=== PATIENT | female | born 1940 | race Caucasian/White ===

== ENCOUNTER 2017-09-06 16:02 | Inpatient (IN) ==
--- NOTE | 2017-09-06 16:27 | ED ---
HPI General Chief Complaint: Stroke Alert Stated Complaint: Stroke Alert/evac Time Seen by Provider: 09/06/17 16:09 History of Present Illness HPI Narrative: Patient brought in by [facility] secondary to strokelike symptoms. Currently the family found her around 930 this morning with facial droop. Denies any chest pain, fever, chills, nausea, vomiting, abdominal pain, but reports chronic back pain for which she is taking Circle. She also has a history of hypertension and type 2 diabetes mellitus. She is reporting shortness of breath at rest and on exertion. She also denies headache, numbness , tingling, vision change. Patient did not take her blood pressure medicine today, and she does not know what she takes. There has been some question as to whether or not the patient had some strokelike symptoms yesterday before she went to bed. Regardless, as patient's last known normal is more than 6 hours ago, the stroke alert has been canceled. Patient has h/o DM, lung dz 2/2 smoking (COPD?asthma?), hyperCHL- This is based on preop note in [facility]. Patient is supposed to be on ASA but she's not taking it. States she is on norco for her chronic back pain. Related Data Home Medications Medication Instructions Recorded Confirmed Unable to Obtain Home Meds 09/06/17 09/06/17 Allergies Allergy/AdvReac Type Severity Reaction Status Date / Time No Known Allergies Allergy Unverified 09/06/17 16:47 Review of Systems ROS Unobtainable All other systems reviewed negative except as stated in [facility] Social History Social History Second Hand Smoke Exposure: No Smoking Status: Never smoker How Often Do You Have a Drink Containing Alcohol: Never Immunization History Tetanus Immunization: Unsure Hx Influenza Vaccine This Season: Yes Exam Narrative Exam Narrative: GENERAL: Awake and alert SKIN: Focused skin assessment warm/dry. HEAD: Atraumatic. Normocephalic. EYES: Pupils equal and round. No scleral icterus. No injection or drainage. ENT: No nasal bleeding or discharge. Mucous membranes pink and moist. R facial droop. NECK: Trachea midline. No JVD. CARDIOVASCULAR: Regular rate and rhythm. No murmur appreciated. RESPIRATORY: No accessory muscle use. Clear to auscultation. Breath sounds equal bilaterally. GASTROINTESTINAL: Abdomen soft, non-tender, nondistended. Hepatic and splenic margins not palpable. MUSCULOSKELETAL: No obvious deformities. No clubbing. No cyanosis. No edema. 2 /5 strength LUE, remaining extremities 5/5. NEUROLOGICAL: Awake and alert. No obvious cranial nerve deficits. Motor grossly within normal limits. Normal speech. Stroke scale 8. PSYCHIATRIC: Appropriate mood and affect; insight and judgment normal. Course Initial Documented Vital Signs Temperature 97.9 F 09/06/17 16:12 Pulse Rate 100 H 09/06/17 16:12 Respiratory Rate 18 09/06/17 16:12 Blood Pressure 218/94 H 09/06/17 16:12 Pulse Oximetry 93 L 09/06/17 16:12 Last Documented Vital Signs Temperature 97.9 F 09/06/17 16:12 Pulse Rate 94 H 09/06/17 17:06 Respiratory Rate 18 09/06/17 17:06 Blood Pressure 188/84 H 09/06/17 17:06 Pulse Oximetry 95 09/06/17 17:06 NIH Stroke Scale NIH Stroke Scale Level of Consciousness: 0-Alert Orientation Questions: 0-Answers both correct Responds to Commands: 0-Both tasks correct Gaze Eye Movement: 0-Horizontal movement WNL Visual Bales: 2-Complete hemianopia Facial Movement: 1-Minor facial palsy Motor Functions Arm LEFT: 2-Falls before 10 seconds Motor Functions Arm RIGHT: 0-No drift Motor Functions Leg LEFT: 0-No drift Motor Functions Leg RIGHT: 0-No drift Limb Ataxia: 1-Ataxia in one limb Sensory Loss: 1-Mild sensory loss Best Language: 0-Normal Articulation: 0-Normal Extinction or Inattention Sensory: 1-Loss 1 sensory modality Total: 8 Medical Decision Making MDM Narrative Medical decision making narrative: Patient presents to the emergency department as a possible stroke alert. Geovany was counseled this patient's symptoms began more than 6 hours prior to ER presentation. Her NIH stroke scale is 8 and she does have left upper extremity weakness and right-sided facial droop. Patient placed on hall monitor, continuous pulse ox, and IV access obtained. Head CT/chest x-ray/labs have been ordered. 1630: Rate 99, sinus rhythm, QTC 441, left axis deviation, left bundle branch block (no old to compare but patient denies chest pain) Labs: Elevated white blood cell count, CK, CKMB, fibrinogen, anion gap; ua+ nitrates, LE, bacteria, ketones CXR: No acute process. FINDINGS: A single AP view of the chest demonstrates the lungs to be symmetrically aerated without evidence of mass, infiltrate or effusion. The cardiomediastinal contours are unremarkable. Osseous structures are intact. Head CT: CONCLUSION:1. No acute findings. Remote lacunar infarct on the right involving basal ganglia and white matter. 1701: BP 188/94. 5mg IV labetalol ordered. 182: 5mg IV labetalol 185/86 1850: Spoke to Dr. Puga. Needs MRI brain, MRA, carotid study, ECHO, ASA or plavix. If patient not compliant wit ASA, give 325mg po ASA. If she is compliant with ASA, give plavix 75mg. Admit. 2/ CVA, ok to be slightly HTNive. 2007: Patient states difficult getting comfortable secondary to back pain. She denies chest pain. Is being admitted. UA + UTI-> 1gram IV rocephin. Also given 250cc IV NS bolus, then 70cc/hr. Differential Diagnosis Differential Diagnosis: ICH, TIA, CVA, hypertensive emergency Lab Data Result diagrams: 09/06/17 16:20 09/06/17 16:20 Lab Results 09/06/17 09/06/17 09/06/17 Range/Units 16:20 16:20 16:20 WBC 11.9 H (4.0-11.0) th/mm3 RBC 4.62 (4.00-5.30) mil/mm3 Hgb 15.4 H (11.6-15.3) gm/dL Hct 44.6 (35.0-46.0) % MCV 96.6 (80.0-100.0) fL MCH 33.4 (27.0-34.0) pg MCHC 34.6 (32.0-36.0) % RDW 13.4 (11.6-17.2) % Plt Count 196 (150-450) th/mm3 MPV 9.3 (7.0-11.0) fL Neut % (Auto) 79.8 H (16.0-70.0) % Lymph % (Auto) 11.4 (9.0-44.0) % [place] % (Auto) 8.2 H (0.0-8.0) % Eos % (Auto) 0.4 (0.0-4.0) % Baso % (Auto) 0.2 (0.0-2.0) % Neut # (Auto) 9.5 H (1.8-7.7) th/mm3 Lymph # (Auto) 1.4 (1.0-4.8) th/mm3 [place] # (Auto) 1.0 H (0.0-0.9) th/mm3 Eos # (Auto) 0.0 (0.0-0.4) th/mm3 Baso # (Auto) 0.0 (0.0-0.2) th/mm3 WBC Differential . Differential Comment Auto diff final PT 10.1 (9.8-11.6) sec INR 1.0 Ratio APTT 25.0 (24.3-30.1) sec Fibrinogen 640 H (227-377) mg/dL Sodium (136-145) meq/L Potassium (3.5-5.1) meq/L Chloride (98-107) meq/L Carbon Dioxide (21.0-32.0) meq/L Anion Gap (5-15) meq/L BUN (7-18) mg/dL Creatinine (0.50-1.00) mg/dL Estimated GFR (>89) mL/min Random Glucose (74-106) mg/dL Calcium (8.5-10.1) mg/dL Magnesium (1.5-2.5) mg/dL Total Bilirubin (0.2-1.0) mg/dL AST (15-37) U/L ALT (10-53) U/L Alkaline Phosphatase (45-117) U/L Total Creatine Kinase 204 H (26-192) U/L CK-MB (CK-2) 3.9 H (0.5-3.6) ng/mL CK-MB (CK-2) % 1.9 (0.0-4.0) % Troponin I Less than 0.02 L (0.02-0.05) ng/mL B-Natriuretic Peptide (0-100) pg/mL Total Protein (6.4-8.2) g/dL Albumin (3.4-5.0) g/dL Urine Color (Yellw/Straw) Urine Clarity (Clear) Urine pH (5.0-8.5) Ur Specific [place] (1.002-1.035) Urine Protein (Neg-Trace) mg/dL Urine Glucose (UA) (Negative) mg/dL Urine Ketones (Negative) mg/dL Urine Occult Blood (Negative) Urine Nitrate (Negative) Urine Bilirubin (Negative) Urine Urobilinogen (Less than 2) mg/dL Ur Leukocyte Esterase (Negative) Urine RBC (0-3) /hpf Urine WBC (0-5) /hpf Ur Squamous Epith Cells (0-5) /hpf Urine Bacteria (None) /hpf Urine Mucus (Occasional) /lpf Micro UA Comment Urine Culture Comments Blood Type Blood Type Recheck Antibody Screen 09/06/17 09/06/17 09/06/17 Range/Units 16:20 16:20 16:20 WBC (4.0-11.0) th/mm3 RBC (4.00-5.30) mil/mm3 Hgb (11.6-15.3) gm/dL Hct (35.0-46.0) % MCV (80.0-100.0) fL MCH (27.0-34.0) pg MCHC (32.0-36.0) % RDW (11.6-17.2) % Plt Count (150-450) th/mm3 MPV (7.0-11.0) fL Neut % (Auto) (16.0-70.0) % Lymph % (Auto) (9.0-44.0) % [place] % (Auto) (0.0-8.0) % Eos % (Auto) (0.0-4.0) % Baso % (Auto) (0.0-2.0) % Neut # (Auto) (1.8-7.7) th/mm3 Lymph # (Auto) (1.0-4.8) th/mm3 [place] # (Auto) (0.0-0.9) th/mm3 Eos # (Auto) (0.0-0.4) th/mm3 Baso # (Auto) (0.0-0.2) th/mm3 WBC Differential Differential Comment PT (9.8-11.6) sec INR Ratio APTT (24.3-30.1) sec Fibrinogen (227-377) mg/dL Sodium (136-145) meq/L Potassium (3.5-5.1) meq/L Chloride (98-107) meq/L Carbon Dioxide (21.0-32.0) meq/L Anion Gap (5-15) meq/L BUN (7-18) mg/dL Creatinine (0.50-1.00) mg/dL Estimated GFR (>89) mL/min Random Glucose (74-106) mg/dL Calcium (8.5-10.1) mg/dL Magnesium 1.8 (1.5-2.5) mg/dL Total Bilirubin (0.2-1.0) mg/dL AST (15-37) U/L ALT (10-53) U/L Alkaline Phosphatase (45-117) U/L Total Creatine Kinase 211 H (26-192) U/L CK-MB (CK-2) (0.5-3.6) ng/mL CK-MB (CK-2) % (0.0-4.0) % Troponin I (0.02-0.05) ng/mL B-Natriuretic Peptide 70 (0-100) pg/mL Total Protein (6.4-8.2) g/dL Albumin (3.4-5.0) g/dL Urine Color (Yellw/Straw) Urine Clarity (Clear) Urine pH (5.0-8.5) Ur Specific [place] (1.002-1.035) Urine Protein (Neg-Trace) mg/dL Urine Glucose (UA) (Negative) mg/dL Urine Ketones (Negative) mg/dL Urine Occult Blood (Negative) Urine Nitrate (Negative) Urine Bilirubin (Negative) Urine Urobilinogen (Less than 2) mg/dL Ur Leukocyte Esterase (Negative) Urine RBC (0-3) /hpf Urine WBC (0-5) /hpf Ur Squamous Epith Cells (0-5) /hpf Urine Bacteria (None) /hpf Urine Mucus (Occasional) /lpf Micro UA Comment Urine Culture Comments Blood Type Blood Type Recheck Antibody Screen 09/06/17 09/06/17 09/06/17 Range/Units 16:20 16:22 19:25 WBC (4.0-11.0) th/mm3 RBC (4.00-5.30) mil/mm3 Hgb (11.6-15.3) gm/dL Hct (35.0-46.0) % MCV (80.0-100.0) fL MCH (27.0-34.0) pg MCHC (32.0-36.0) % RDW (11.6-17.2) % Plt Count (150-450) th/mm3 MPV (7.0-11.0) fL Neut % (Auto) (16.0-70.0) % Lymph % (Auto) (9.0-44.0) % [place] % (Auto) (0.0-8.0) % Eos % (Auto) (0.0-4.0) % Baso % (Auto) (0.0-2.0) % Neut # (Auto) (1.8-7.7) th/mm3 Lymph # (Auto) (1.0-4.8) th/mm3 [place] # (Auto) (0.0-0.9) th/mm3 Eos # (Auto) (0.0-0.4) th/mm3 Baso # (Auto) (0.0-0.2) th/mm3 WBC Differential Differential Comment PT (9.8-11.6) sec INR Ratio APTT (24.3-30.1) sec Fibrinogen (227-377) mg/dL Sodium 134 L (136-145) meq/L Potassium 3.6 (3.5-5.1) meq/L Chloride 94 L (98-107) meq/L Carbon Dioxide 20.1 L (21.0-32.0) meq/L Anion Gap 20 H (5-15) meq/L BUN 13 (7-18) mg/dL Creatinine 0.75 (0.50-1.00) mg/dL Estimated GFR 75 L (>89) mL/min Random Glucose 227 H (74-106) mg/dL Calcium 9.3 (8.5-10.1) mg/dL Magnesium (1.5-2.5) mg/dL Total Bilirubin 0.9 (0.2-1.0) mg/dL AST 30 (15-37) U/L ALT 21 (10-53) U/L Alkaline Phosphatase 114 (45-117) U/L Total Creatine Kinase (26-192) U/L CK-MB (CK-2) (0.5-3.6) ng/mL CK-MB (CK-2) % (0.0-4.0) % Troponin I (0.02-0.05) ng/mL B-Natriuretic Peptide (0-100) pg/mL Total Protein 7.5 (6.4-8.2) g/dL Albumin 3.3 L (3.4-5.0) g/dL Urine Color [place] (Yellw/Straw) Urine Clarity Hazy H (Clear) Urine pH 6.0 (5.0-8.5) Ur Specific [place] 1.019 (1.002-1.035) Urine Protein 30 H (Neg-Trace) mg/dL Urine Glucose (UA) 50 (Negative) mg/dL Urine Ketones Trace H (Negative) mg/dL Urine Occult Blood Negative (Negative) Urine Nitrate Positive H (Negative) Urine Bilirubin Negative (Negative) Urine Urobilinogen 4 or greater (Less than 2) mg/dL Ur Leukocyte Esterase Small H (Negative) Urine RBC 2 (0-3) /hpf Urine WBC (0-5) /hpf Ur Squamous Epith Cells 3 (0-5) /hpf Urine Bacteria Few H (None) /hpf Urine Mucus Few H (Occasional) /lpf Micro UA Comment Culture indicated Urine Culture Comments Culture indicated Blood Type A Positive Blood Type Recheck Required Antibody Screen Negative Imaging Data Radiologist's impression: ITS Impressions Chest X-Ray 09/06/17 16:17 CONCLUSION: No active disease. Head CT 09/06/17 16:22 CONCLUSION: 1. No acute findings. Remote lacunar infarct on the right involving basal ganglia and white matter. Discharge Plan Discharge Disposition Patient Disposition: 30 Still Patient Discharge Condition Condition: Stable Discharge Details Discharge Problem: CVA (cerebral vascular accident), UTI (urinary tract infection) Physicians Team ED Provider: Alejandra Anderson Primary Care Provider: UNKNOWN, Attending Provider: Duncan Pardo Status ED Status: Admitted Patient
--- NOTE | 2017-09-06 16:37 | XR ---
EXAM DATE: 09/06/2017 4:33 PM EDT AGE/SEX: 77 years / Female INDICATIONS: Stroke alert. CLINICAL DATA: This is the patient's initial encounter. Patient reports that signs and symptoms have been present for 1 day and indicates a pain score of 0/10. MEDICAL/SURGICAL HISTORY: None. Umbilical hernia repair. COMPARISON: No prior exams available for comparison. FINDINGS: A single AP view of the chest demonstrates the lungs to be symmetrically aerated without evidence of mass, infiltrate or effusion. The cardiomediastinal contours are unremarkable. Osseous structures a re intact. CONCLUSION: No active disease. Electronically signed by: Joaquin Sims MD 09/06/2017 4:36 PM EDT
[2017-09-06 16:53] LABS: Baso % (Auto) 0.2 % (0.0-2.0); Eos % (Auto) 0.4 % (0.0-4.0); Hematocrit 44.6 % (35.0-46.0); Hemoglobin 15.4 gm/dL (11.6-15.3); Lymph # (Auto) 1.4 th/mm3 (1.0-4.8); Lymph % (Auto) 11.4 % (9.0-44.0); Mean Corpuscular HGB Conc 34.6 % (32.0-36.0); Mean Corpuscular Hemoglobin 33.4 pg (27.0-34.0); Mean Corpuscular Volume 96.6 fL (80.0-100.0); Mean Platelet Volume 9.3 fL (7.0-11.0); Mono % (Auto) 8.2 % (0.0-8.0); Neut # (Auto) 9.5 th/mm3 (1.8-7.7); Neut % (Auto) 79.8 % (16.0-70.0); Platelet Count 196 th/mm3 (150-450); Red Blood Count 4.62 mil/mm3 (4.00-5.30); Red Cell Distribution Width 13.4 % (11.6-17.2); White Blood Count 11.9 th/mm3 (4.0-11.0)
[2017-09-06] MEDS ORDERED: Labetalol HCl Inj 100 MG/20 ML Vial IV.PUSH ONE ×2 (17:07→18:28)
[2017-09-06 17:09] LABS: Prothrombin Time 10.1 sec (9.8-11.6)
[2017-09-06 17:27] LABS: Creatine Kinase 204 U/L (26-192)
[2017-09-06 17:40] LABS: CKMB Percent 1.9 % (0.0-4.0); Creatine Kinase MB 3.9 ng/mL (0.5-3.6)
[2017-09-06 19:08] LABS: Alanine Aminotransferase 21 U/L (10-53); Albumin 3.3 g/dL (3.4-5.0); Anion Gap 20 meq/L (5-15); Aspartate Aminotransferase 30 U/L (15-37); Blood Urea Nitrogen 13 mg/dL (7-18); Calcium 9.3 mg/dL (8.5-10.1); Carbon Dioxide 20.1 meq/L (21.0-32.0); Chloride 94 meq/L (98-107); Glomerular Filtration Rate 75 mL/min (>89); Glucose,Random 227 mg/dL (74-106); Sodium 134 meq/L (136-145)
[2017-09-06 19:09] LABS: Potassium 3.6 meq/L (3.5-5.1)
[2017-09-06 19:11] LABS: Alkaline Phosphatase 114 U/L (45-117); Total Protein 7.5 g/dL (6.4-8.2)
[2017-09-06] MEDS ORDERED: Aspirin 325 MG Tablet PO ONE (20:04)
[2017-09-06] MEDS ORDERED: Dextrose 50% in Water 50 ML Vial IV.PUSH PRN (20:05)
[2017-09-06 20:08] LABS: Bacteria,Urine Few /hpf; Bilirubin,Urine Negative (Negative); Clarity,Urine Hazy (Clear); Color,Urine Amber (Yellw/Straw); Glucose,Urine (UA) 50 mg/dL (Negative); Leukocyte Esterase,Urine Small (Negative); Mucus,Urine Few /lpf (Occasional); Nitrite,Urine Positive (Negative); Specific Gravity,Urine 1.019 (1.002-1.035); Squamous Epithelial Cell,Urine 3 /hpf (0-5); Urobilinogen,Urine 4 or Greater mg/dL (Less than 2)
[2017-09-06] MEDS ORDERED: Sodium Chlor 0.9% Inj 250 ML IV.SIG ONE (20:13)
[2017-09-06] MEDS: Heparin - SQ 10,000 UNITS/ML Vial SQ SCH (23:25)
--- NOTE | 2017-09-07 04:46 | P.HPIM ---
History of Present Illness Primary Care Physician: UNKNOWN Chief Complaint: Left-sided weakness History of Present Illness: 77-year-old female with history of hypertension, COPD, diabetes mellitus who is brought in by family, having been found around 9:30 AM on 09/06 with left-sided weakness and facial droop. Patient says that this has been gradually worsening since 09/03. She denies any other symptoms. Denies any chest pain, shortness of breath, nausea, vomiting, fevers, chills, dysuria. - Inpatient Certification If this patient has been admitted as an Inpatient: I certify that the inpatient services were ordered in accordance with Medicare regulations governing the order. This includes certification that hospital inpatient services are reasonable and necessary and in the case of services not specified as inpatient-only under 42 CFR 419.22(n), that they are appropriately provided as inpatient services in accordance to with the 2-midnight benchmark under 43 CFR 412.3(e) Estimated Total Length of Stay (Days): 2 Plans for Post Hospital Care: SNF Review of Systems All other systems reviewed negative except as stated [facility] - History History Provided By: Patient - Medical History Medical History: Medical History (Last Updated 09/07/17 @ 04:42 by Duncan Pardo MD) History of hysterectomy Hypertension - Family History Family History: Family History (Last Updated 09/07/17 @ 04:42 by Duncan Pardo MD) Father Cancer Mother Diabetes - Tobacco History Second Hand Smoke Exposure: No Tobacco Use In Past 30 Days: No Smoking Status: Never smoker - Alcohol History How Often Do You Have a Drink Containing Alcohol: Never - Immunization History Tetanus Immunization: Unsure Hx Influenza Vaccine This Season: Yes Medications and Allergies Active Medications: Active Medications Albuterol (Duoneb Neb (Prn)) 1 ampul NEB Q4HR NEB PRN PRN Reason: SHORTNESS OF BREATH/WHEEZING Aspirin (Aspirin) 325 mg PO DAILY [facility] Dextrose (D50w Vial) 50 ml IV.PUSH UNSCH PRN PRN Reason: PER HYPOGLYCEMIA PROTOCOL Enalaprilat (Vasotec Inj) 1.25 mg IV.PUSH Q4H PRN PRN Reason: For SBP > 220 or DBP > 120 Glucagon (Glucagon Inj) 1 mg OTHER PRN PRN PRN Reason: for Hypoglycemia Protocol Heparin Sodium (Porcine) (Heparin Inj) 5,000 units SQ Q12H [facility] Last Admin: 09/06/17 23:25 Dose: 5,000 units Ceftriaxone Sodium 1,000 mg/ (Sodium Chloride) 100 mls @ 200 mls/hr IV.SIG Q24H EZIO Insulin Aspart (Novolog Insulin Suppl Scale Inj) 0 unit SQ ACHS EZIO; Protocol Sodium Chloride (Ns Flush) 2 ml IV.FLUSH PRN PRN PRN Reason: FLUSH AFTER USING IV ACCESS Sodium Chloride (Ns Flush) 2 ml IV.FLUSH BID EZIO Last Admin: 09/06/17 23:26 Dose: 2 ml Allergies Allergy/AdvReac Type Severity Reaction Status Date / Time No Known Allergies Allergy Unverified 09/06/17 16:47 Home Medications Medication Instructions Recorded Confirmed Type Unable to Obtain Home Meds 09/06/17 09/06/17 History Exam Vital signs: Vital Signs 09/06/17 16:12 09/06/17 16:17 09/06/17 17:06 Temperature 97.9 F Pulse Rate 100 H 94 H 94 H Respiratory Rate 18 18 Blood Pressure 218/94 H 188/84 H Pulse Oximetry 93 L 95 09/06/17 21:01 09/06/17 21:11 09/06/17 21:39 Temperature 97.8 F Pulse Rate 80 Respiratory Rate 16 Blood Pressure 162/76 H Pulse Oximetry 96 96 09/06/17 22:28 09/07/17 00:00 09/07/17 00:23 Temperature 97.5 F L 98.2 F Pulse Rate 86 80 Respiratory Rate 16 18 16 Blood Pressure 169/72 H 158/71 H Pulse Oximetry 95 94 L 09/07/17 04:00 Temperature 98.0 F Pulse Rate 81 Respiratory Rate 18 Blood Pressure 178/72 H Pulse Oximetry 95 Intake & Output 09/06/17 09/06/17 09/07/17 06:59 18:59 06:59 Weight 6 kg Other: # Urine Diapers 1 Narrative: GENERAL: Patient lying in bed. Appears comfortable. Patient is oriented 4, however does not know her med list. SKIN: Warm and dry. HEAD: Atraumatic. Normocephalic. EYES: Pupils equal and round. No scleral icterus. No injection or drainage. ENT: No nasal bleeding or discharge. Mucous membranes pink and moist. NECK: Trachea midline. No JVD. CARDIOVASCULAR: Regular rate and rhythm. RESPIRATORY: No accessory muscle use. Clear to auscultation. Breath sounds equal bilaterally. GASTROINTESTINAL: Abdomen soft, non-tender, nondistended. Hepatic and splenic margins not palpable. MUSCULOSKELETAL: Extremities without clubbing, cyanosis, or edema. No obvious deformities. NEUROLOGICAL: Awake and alert. Patient with marketed left upper and lower extremity weakness. 2 out of 5 strength on left upper and left lower extremity. Left-sided facial droop. Pupils equal round and reactive to light and accommodation bilaterally. PSYCHIATRIC: Appropriate mood and affect; insight and judgment normal. Results - Labs CBC & Chem 7: 09/06/17 16:20 09/06/17 16:20 Labs: Short CBC 09/06/17 Range/Units 16:20 WBC 11.9 H (4.0-11.0) th/mm3 Hgb 15.4 H (11.6-15.3) gm/dL Hct 44.6 (35.0-46.0) % Plt Count 196 (150-450) th/mm3 BMP 09/06/17 16:20 Sodium 134 L Potassium 3.6 Chloride 94 L Carbon Dioxide 20.1 L BUN 13 Creatinine 0.75 Calcium 9.3 Cardiac Enzymes 09/06/17 09/06/17 Range/Units 16:20 16:20 Total Creatine Kinase 204 H 211 H (26-192) U/L CK-MB (CK-2) 3.9 H (0.5-3.6) ng/mL Troponin I Less than 0.02 L (0.02-0.05) ng/mL Liver Function 09/06/17 Range/Units 16:20 Total Bilirubin 0.9 (0.2-1.0) mg/dL AST 30 (15-37) U/L ALT 21 (10-53) U/L Alkaline Phosphatase 114 (45-117) U/L Albumin 3.3 L (3.4-5.0) g/dL Urine 09/06/17 Range/Units 19:25 Urine Color [place] (Yellw/Straw) Urine Clarity Hazy H (Clear) Urine pH 6.0 (5.0-8.5) Ur Specific [place] 1.019 (1.002-1.035) Urine Protein 30 H (Neg-Trace) mg/dL Urine Glucose (UA) 50 (Negative) mg/dL - Imaging Impressions Chest X-Ray 09/06/17 16:17 CONCLUSION: No active disease. Head CT 09/06/17 16:22 CONCLUSION: 1. No acute findings. Remote lacunar infarct on the right involving basal ganglia and white matter. Caprini VTE Risk Assessment Caprini VTE Risk Assessment: Moderate/High Risk (score >= 2) Caprini Risk Assessment Model: Point Value = 1 Point Value = 2 Point Value = 3 Point Value = 5 Age 41-60 Minor surgery BMI > 25 kg/m2 Swollen legs Varicose veins or History of unexplained or recurrent spontaneous Oral contraceptives or hormone replacement Sepsis (< 1 month) Serious lung disease, including pneumonia (< 1 month) Abnormal pulmonary function Acute myocardial infarction Congestive heart failure (< 1 month) History of inflammatory bowel disease Medical patient at bed rest Age 61-74 Arthroscopic surgery Major open surgery (> 45 min) Laparoscopic surgery (> 45 min) Malignancy Confined to bed (> 72 hours) Immobilizing plaster cast Central venous access Age >= 75 History of VTE Family history of VTE Factor V Leiden Prothrombin [id number] Lupus anticoagulant Anticardiolipin antibodies Elevated serum homocysteine Heparin-induced thrombocytopenia Other congenital or acquired thrombophilia Stroke (< 1 month) Elective arthroplasty Hip, pelvis, or leg fracture Acute spinal cord injury (< 1 month) Prophylaxis Regimen: Total Risk Factor Score Risk Level Prophylaxis Regimen 0-1 Low Early ambulation 2 Moderate Order ONE of the following: *Sequential Compression Device (SCD) *Heparin 5000 units SQ BID 3-4 Higher Order ONE of the following medications: *Heparin 5000 units SQ TID *Enoxaparin/Lovenox 40 mg SQ daily (WT < 150 kg, CrCl > 30 mL/min) *Enoxaparin/Lovenox 30 mg SQ daily (WT < 150 kg, CrCl > 10-29 mL/min) *Enoxaparin/Lovenox 30 mg SQ BID (WT < 150 kg, CrCl > 30 mL/min) AND/OR *Sequential Compression Device (SCD) 5 or more Highest Order ONE of the following medications: *Heparin 5000 units SQ TID (Preferred with Epidurals) *Enoxaparin/Lovenox 40 mg SQ daily (WT < 150 kg, CrCl > 30 mL/min) *Enoxaparin/Lovenox 30 mg SQ daily (WT < 150 kg, CrCl > 10-29 mL/min) *Enoxaparin/Lovenox 30 mg SQ BID (WT < 150 kg, CrCl > 30 mL/min) AND *Sequential Compression Device (SCD) Assessment and Plan - Plan //Suspected acute ischemic stroke with left-sided weakness. = CT on admission with no acute findings, old lacunar infarct. Marketed left- sided weakness however. MRA, MRI pending. Neurology consult. Permissive hypertension. Neurochecks. Continue to monitor. Check A1c and lipid profile. = Start daily aspirin = Follow-up neurology recommendations. //History of COPD. Stable. Duo nebs as needed. //Diabetes mellitus. Chronic. Will check A1c. Patient is n.p.o. for now. Insulin sliding scale //UTI. Urinalysis with innumerable white blood cells. Start on ceftriaxone. //Chronic pain. On [place]. Patient denies any recent changes. Continue home meds. //Anion gap acidosis. Uncertain etiology. Repeat labs. Trace ketones on urine. CK mildly elevated. Lactic acid is pending. //History of hypertension. Unknown home meds. Permissive hypertension Discussed Condition With: Patient, nurse, ED physician.
[2017-09-07] MEDS: Insulin NovoLOG Aspart Correctional Sugar Inj SQ SCH ×5 (05:54→22:27)
[2017-09-07 06:27] LABS: Amphetamine Screen,Urine Neg (Neg); Barbiturate Screen,Urine Neg (Neg); Cannabinoid Screen,Urine Neg (Neg); Cocaine Screen,Urine Neg (Neg); Opiate Screen,Urine Pos (Neg)
[2017-09-07] MEDS: Aspirin 325 MG Tablet PO SCH (08:49)
[2017-09-07] MEDS: Heparin - SQ 10,000 UNITS/ML Vial SQ SCH ×2 (08:50→22:25)
[2017-09-07] MEDS ORDERED: Aspirin 325 MG Tablet PO SCH (09:00)
--- NOTE | 2017-09-07 10:17 | MB ---
cc: Olaf Dunn MD DATE: 09/07/2017 HISTORY OF PRESENT ILLNESS: A 77-year-old, right-handed woman with hypertension and non-insulin dependent diabetes. Yesterday she is not sure what time she became weak on the left side. It was over 6 hours when she came in. The family found her at 9:30 yesterday morning with a facial droop. She has been on some chronic [place] for back pain. She was having some shortness of breath on exertion. She has some history COPD, evidently some hypercholesterolemia. REVIEW OF SYSTEMS: She denied any hypercholesterolemia, CABG, stent, angioplasty, AFib, Coumadin, heart problems, renal, hepatic or pulmonary disease, thyroid disease, lupus, ulcer, cancer, seizure or stroke. SOCIAL HISTORY: Nonsmoker, drinker, lives with her son. FAMILY HISTORY: Positive for cancer in her father. Negative for seizure or stroke. MEDICATIONS AT HOME: Unable to obtain. She was not taking an aspirin a day or any blood thinner, she tells me. PHYSICAL EXAMINATION: VITAL SIGNS: 171/70, 18, afebrile. NECK: No carotid bruits. HEART: Regular rhythm with a 1/6 systolic ejection murmur. NEUROLOGIC: Pupils are equal. Visual huerta are full. Extraocular movements intact. No nystagmus. There is a left facial droop with normal sensation. Tongue was midline and moves well. She is slightly dysarthric, but not aphasic. Follows commands well. She has normal strength in right upper and lower extremity. Left lower extremity is about a 4+/5. Left upper extremity is about a 4-/5 in triceps, but she cannot move any of her fingers. Pinprick was intact throughout. DTRs slightly hyperreflexive on the left compared to the right, but generally trace throughout. Toes are downgoing bilaterally. No ankle clonus. She is awake and alert. LABORATORY DATA: White count is 11.9, otherwise CBC was normal. Urine drug screen positive for opiates. UA positive nitrites, small amount of leukocyte esterase, many white cells. Basic metabolic profile was normal. Glucose 206. CPK was normal. Troponin was negative. Albumin is 3.3. LFTs are normal. Coags were normal. IMAGING STUDIES: CAT scan of brain was read as negative. She has an old right lacunar infarct, rather large. Chest x-ray negative. IMPRESSION: Right-sided stroke. Pure motor hemiparesis, possibly affecting that subcortical region on the right that had an old stroke in the past. A pontine infarct could also be considered. RECOMMENDATIONS: Would check an MRI of the brain, MRA [place] and neck, some additional blood work. Right now she is on 325 of aspirin. Keep head of bed flat. IV hydration. I will be following her with you in the hospital. It looks like she has significant UTI and she was given one dose of ceftriaxone. MD CLAUDIA Villanueva/CHUCK , 09:38 AM , 10:17 AM
[2017-09-07 10:19] LABS: Anion Gap 11 meq/L (5-15); Blood Urea Nitrogen 12 mg/dL (7-18); Calcium 8.5 mg/dL (8.5-10.1); Carbon Dioxide 27.7 meq/L (21.0-32.0); Chloride 100 meq/L (98-107); Cholesterol 168 mg/dL (120-200); Glomerular Filtration Rate Greater Than 89 mL/min (>89); Potassium 3.2 meq/L (3.5-5.1); Sodium 139 meq/L (136-145); Triglycerides 163 mg/dL (42-150)
[2017-09-07 10:20] LABS: Glucose,Random 139 mg/dL (74-106)
[2017-09-07 10:31] LABS: LDL Cholesterol,Calculated 95 mg/dL (0-99)
--- NOTE | 2017-09-07 11:43 | US ---
EXAM DATE: 09/07/2017 11:35 AM EDT AGE/SEX: 77 years / Female INDICATIONS: Transient ischemic attack. CLINICAL DATA: This is the patient's initial encounter. Patient reports that signs and symptoms have been present for 1 day and indicates a pain score of 0/10. MEDICAL/SURGICAL HISTORY: Hypertension. Hysterectomy. COMPARISON: No prior exams available for comparison. VELOCITY PARAMETERS: ICA/CCA Ratio: Right 1.9 , Left 2.7 ICA: Right 154.8 cm/sec, Left 213.5 cm/sec CCA: Right 79.8 cm/sec, Left 79.8 cm/sec ECA: Right 107.5 cm/sec, Left 126.9 cm/sec Vertebral: Right 49.0 cm/sec antegrade, Left 38.1 cm/sec antegrade FINDINGS: Right Carotid: Mild to moderate arteriosclerotic plaque is visualized.The waveforms are within manuelito l limits. Left Carotid: Moderate arteriosclerotic plaque is visualized. The waveforms are within normal limits . Other: None. CONCLUSION: 1. Right Internal Carotid Artery: Findings indicate <50% stenosis. 2. Left Internal Carotid Artery: Findings indicate 50-69% stenosis. Electronically signed by: Bronson Leigh MD 09/07/2017 11:41 AM EDT
--- NOTE | 2017-09-07 14:06 | MR ---
EXAM DATE: 09/07/2017 1:55 PM EDT AGE/SEX: 77 years / Female INDICATIONS: . Left sided weakness with facial droop. CLINICAL DATA: This is the patient's subsequent encounter. Patient reports that signs and symptoms h ave been present for 2 days and indicates a pain score of 0/10. MEDICAL/SURGICAL HISTORY: Hypertension. Diabetes mellitus type II. Hysterectomy. COMPARISON: [facility] – [place], MR HEAD W & W/O CONTRAST, 09/07/2017. . TECHNIQUE: 3D [id number] MRA was performed. Source images, multiplanar STS MIP, and 3D volum e MIP reconstructions were reviewed. FINDINGS: There is excellent visualization of the major intracranial arteries out to the second-order branch ve ssels. There is no evidence for aneurysm, vessel truncation or evidence for vascular malformation. There appears to be a focal area of stenosis involving the proximal portion of a branch of the right middle cerebral artery. No occlusion is demonstrated. There is a patent right posterior communicating artery. CONCLUSION: 1. There appears to be a focal stenosis involving the proximal segment of a branch of the right midd le cerebral artery. 2. Otherwise, the rest of the MRA brain is within normal limits for patient's age. Electronically signed by: Luis Caldwell MD 09/07/2017 2:04 PM EDT
[2017-09-07] MEDS ORDERED: Gadodiamide PF Inj 287 MG/ML 20 ML Syringe (for RAD MRI) IVCONTRAST ONE (14:18)
--- NOTE | 2017-09-07 14:35 | MR ---
EXAM DATE: 09/07/2017 2:12 PM EDT AGE/SEX: 77 years / Female INDICATIONS: . Left sided weakness with facial droop. CLINICAL DATA: This is the patient's subsequent encounter. Patient reports that signs and symptoms h ave been present for 2 days and indicates a pain score of 0/10. MEDICAL/SURGICAL HISTORY: Hypertension. Diabetes mellitus type II. Hysterectomy. COMPARISON: [facility] – [place], CT HEAD W/O CONTRAST, 09/06/2017. . TECHNIQUE: Multiplanar, multisequence examination of the brain was performed without and with 20 ml O mniscan (gadodiamide) contrast as a single exam dose. FINDINGS: Cerebrum: The ventricles are normal for age. No evidence of midline shift, mass lesion, hemorrhage. There appears to be a focal acute nonhemorrhagic area of infarction involving the deep right mid par ietal area adjacent to the right lateral ventricle extending to the right basal ganglia . This is bes t seen on the diffusion-weighted images. The area of infarction measures approximate 1.9 cm.. No ext raaxial fluid collections are seen. The pituitary gland and suprasellar cistern are normal in config uration. White Matter: Mild chronic white matter changes are noted bilaterally. This is characteristic for pa marck's age. Posterior Fossa: The cerebellum and brainstem are intact. The 4th ventricle is midline. The cerebel lopontine angle is unremarkable. The cerebellar tonsils are normal in position. Diffusion Imaging: There is focal increased signal involving the deep mid right parietal lobe adjace nt to the right lateral ventricle extending to the right basal ganglia consistent with a focal area o f acute infarction. The area of infarction measures 1.9 cm. Extracranial: The visualized portions of the orbits are unremarkable. There are some chronic sinus d isease in the ethmoid sinuses bilaterally. 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 Post Contrast: No abnormal areas of parenchymal or dural enhancement. No evidence of blood-brain ba rrier breakdown. No enhancing mass occupying lesions. CONCLUSION: 1. Focal acute nonhemorrhagic area of infarction involving the deep right mid parietal lobe adjacent the right lateral ventricle extending to the right basal ganglia region. 2. Mild bilateral chronic white matter changes. 3. Chronic sinus disease. Electronically signed by: Luis Caldwell MD 09/07/2017 2:34 PM EDT
--- NOTE | 2017-09-07 14:39 | MR ---
EXAM DATE: 09/07/2017 2:24 PM EDT AGE/SEX: 77 years / Female INDICATIONS: . Left sided weakness with facial droop. CLINICAL DATA: This is the patient's subsequent encounter. Patient reports that signs and symptoms h ave been present for 2 days and indicates a pain score of 0/10. MEDICAL/SURGICAL HISTORY: Hypertension. Diabetes mellitus type II. Hysterectomy. COMPARISON: No prior exams available for comparison. TECHNIQUE: 20 ml Omniscan (gadodiamide) contrast infused MRA (single exam dose) of the extracranial circulation was performed using a neurovascular coil. Postprocessing was performed, including rotat ing sub-volume maximum intensity projections of each carotid artery, rotating full-volume maximum int ensity projections of both carotid arteries, sagittal and coronal sliding thin-slab reformations of e ach carotid artery, and left oblique sliding thin-slab reformation through the aortic arch to include the origin of the arch branch vessels. FINDINGS: Aortic Arch : There is a three-vessel origin of the great vessels from the aorta. No evidence of o stial narrowing. Right Carotid : The common carotid artery is intact. The carotid bulb has a normal configuration wi thout ulceration or narrowing. Eccentric plaque at the origin of the internal carotid artery with res ultant approximately 45% stenosis. Internal carotid artery is otherwise patent to the skull base. The external carotid artery is intact. Left Carotid : The common carotid artery is intact. Eccentric plaque extending from the bulb to the origin of the internal carotid artery. Resultant approximately 45% stenosis. Internal carotid artery is otherwise patent to the skull base. The external carotid artery is intact. Vertebrals : The vertebral arteries have a symmetric diameter. No stenotic lesions are seen. CONCLUSION: 1. Approximately 45% stenosis of the internal carotid artery origins bilaterally secondary to eccent jody plaque. 2. Patent vertebral arteries bilaterally. Percent stenosis is calculated using the diameter of the stenotic region over the diameter of the nor mal distal internal carotid artery Electronically signed by: Bronson Leigh MD 09/07/2017 2:38 PM EDT
[2017-09-07] MEDS: Sod Chloride 0.9% Inj 1,000 ML IV.SIG SCH (15:06)
[2017-09-07 16:22] LABS: Hemoglobin A1c 8.7 % (4.3-6.0)
--- NOTE | 2017-09-07 17:28 | ECHRPT ---
Indication: CVA/TIA CONCLUSIONS Normal left ventricular size. Mild concentric left ventricular hypertrophy. The left ventricular systolic function is mildly reduced with an estimated ejection fraction in the range of 45- 50%. Suspect distal septal hypokinesis. No atrial level shunt is demonstrated by color flow Doppler interrogation. The aortic root and proximal ascending aorta are not well visualized. Trace mitral valve regurgitation. Aortic valve sclerosis is present. Trace aortic valve regurgitation. There is trace tricuspid valve regurgitation. The estimated pulmonary arterial pressure is 37.2 mmHg. BP: / HR: Rhythm: Sinus MEASUREMENTS (Male / Female) Normal Values Technical Quality:Fair 2D ECHO LV Diastolic Diameter PLAX 4.2 cm 4.2 - 5.9 / 3.9 - 5.3 cm LV Systolic Diameter PLAX 3.3 cm IVS Diastolic Thickness 1.5 cm 0.6 - 1.0 / 0.6 - 0.9 cm LVPW Diastolic Thickness 1.4 cm 0.6 - 1.0 / 0.6 - 0.9 cm LV Relative Wall Thickness 0.7 RV Internal Dim ED PLAX 1.8 cm LVOT Diameter 1.4 cm Aortic Root Diameter 2.5 cm LA Systolic Diameter LX 3.4 cm 3.0 - 4.0 / 2.7 - 3.8 cm DOPPLER AV Peak Velocity 142.0 cm/s AV Peak Gradient 8.1 mmHg AV Mean Gradient 4.0 mmHg AV Velocity Time Integral 25.0 cm LVOT Peak Velocity 88.7 cm/s LVOT Peak Gradient 3.1 mmHg LVOT Velocity Time Integral 13.3 cm AV Area Cont Eq vti 0.8 cm AV Area Cont Eq pk 1.0 cm Mitral E Point Velocity 72.1 cm/s Mitral A Point Velocity 111.0 cm/s Mitral E to A Ratio 0.6 LV E' Lateral Velocity 5.3 cm/s Mitral E to LV E' Lateral Ratio 13.7 LV E' Septal Velocity 4.3 cm/s Mitral E to LV E' Septal Ratio 16.8 TR Peak Velocity 261.0 cm/s TR Peak Gradient 27.2 mmHg Right Atrial Pressure 10.0 mmHg Pulmonary Artery Systolic Pressu 37.2 mmHg Right Ventricular Systolic Press 37.2 mmHg PV Peak Velocity 94.0 cm/s PV Peak Gradient 3.5 mmHg FINDINGS LEFT VENTRICLE Normal left ventricular size. Mild concentric left ventricular hypertrophy. The left ventricular systolic function is mildly reduced with an estimated ejection fraction in the range of 45- 50%. Suspect distal septal hypokiesis RIGHT VENTRICLE Normal right ventricular size and systolic function. LEFT ATRIUM The left atrial size is normal. RIGHT ATRIUM The right atrial size is normal. ATRIAL SEPTUM No atrial level shunt is demonstrated by color flow Doppler interrogation. AORTA The aortic root and proximal ascending aorta are not well visualized. MITRAL VALVE Trace mitral valve regurgitation. AORTIC VALVE Aortic valve sclerosis is present. Trace aortic valve regurgitation. TRICUSPID VALVE There is trace tricuspid valve regurgitation. The estimated pulmonary arterial pressure is 37.2 mmHg. PULMONARY VALVE No pulmonary valve regurgitation or stenosis. VESSELS The inferior vena cava is normal in size. PERICARDIUM No pericardial effusion. Quinton Abarca MD (Electronically Signed) Final Date:07 September 2017 17:27
--- NOTE | 2017-09-07 18:02 | ECG ---
Date Performed: 09/06/2017 Time Performed: 16:12:46 PTAGE: 77 years EKG: Sinus rhythm WITH OCCASIONAL ECTOPIC PREMATURE COMPLEXES MARKED LEFT AXIS DEVIATION LEFT BUNDLE BRANCH BLOCK ABNO RMAL ECG NO PREVIOUS TRACING DOCTOR: Rola Fagan Interpretating Date/Time 09/07/2017 17:59:02
--- NOTE | 2017-09-08 02:07 | CT ---
EXAM DATE: 09/08/2017 1:51 AM EDT AGE/SEX: 77 years / Female INDICATIONS: Left side weakness. Evaluate for atherosclrosis. CLINICAL DATA: This is the patient's subsequent encounter. Patient reports that signs and symptoms h ave been present for 3 days and indicates a pain score of 0/10. MEDICAL/SURGICAL HISTORY: Hypertension. Diabetes. Hysterectomy. RADIATION DOSE: 20.97 CTDI (mGy) COMPARISON: [facility] – [place], MRA HEAD W/O CONTRAST, 09/07/2017. . TECHNIQUE: Volumetric scanning was performed using a multi-row detector CT scanner during bolus infu celso of 75 ml Omnipaque 350 (iohexol) nonionic water-soluble contrast as a single exam dose. The d tom was post processed with a variety of visualization algorithms including full volume maximum inten sity projection, multi-planar sliding thin slab reformation, curved planar reformation, and surface r endering techniques. Using automated exposure control and adjustment of the mA and/or kV according t o patient size, radiation dose was kept as low as reasonably achievable to obtain optimal diagnostic quality images. DICOM format image data is available electronically for review and comparison. FINDINGS: There is excellent visualization of the major intracranial arteries out to the second-order branch ve ssels. There is no evidence for aneurysm, vessel truncation or stenosis, and no evidence for vascula r malformation. Mild vertebrobasilar atherosclerotic plaque without narrowing. CONCLUSION: No acute intracranial artery abnormality. The questionable stenosis of a right middle cer ebral artery branch vessel seen on the comparison MRA is not reproduced consistent with transient spa sm or flow related artifact; would favor the latter. Mild vertebrobasilar atherosclerosis without bernard rowing. Electronically signed by: Hans Lagunas MD 09/08/2017 2:05 AM EDT
[2017-09-08] MEDS: Sod Chloride 0.9% Inj 1,000 ML IV.SIG SCH (06:09)
--- NOTE | 2017-09-08 07:18 | P.PNNEU ---
Subjective Subjective Comments: No acute events reported No headache No chest pain No dyspnea sr Active Medications: Active Medications Generic Name Dose Route Start Last Admin Trade Name Freq PRN Reason Stop Dose Admin Albuterol 1 ampul 09/07/17 04:38 Duoneb Neb (Prn) NEB Q4HR NEB PRN SHORTNESS OF BREATH/WHEEZING Aspirin 325 mg 09/07/17 09:00 09/07/17 08:49 Aspirin PO 325 mg DAILY EZIO Administration Dextrose 50 ml 09/06/17 20:05 D50w Vial IV.PUSH UNSCH PRN PER HYPOGLYCEMIA PROTOCOL Enalaprilat 1.25 mg 09/06/17 19:59 Vasotec Inj IV.PUSH Q4H PRN For SBP > 220 or DBP > 120 Glucagon 1 mg 09/06/17 20:05 Glucagon Inj OTHER PRN PRN for Hypoglycemia Protocol Heparin Sodium (Porcine) 5,000 units 09/06/17 20:00 09/07/17 22:25 Heparin Inj SQ 5,000 units Q12H EZIO Administration Ceftriaxone Sodium 1,000 mg/ 100 mls @ 200 mls/hr 09/08/17 00:01 09/08/17 06: 10 Sodium Chloride IV.SIG 200 mls/hr Q24H EZIO Administration Sodium Chloride 1,000 mls @ 70 mls/hr 09/07/17 14:30 09/08/17 06:09 Ns Inj IV.SIG Not Given .[id number] [facility] Insulin Aspart 0 unit 09/06/17 21:00 09/07/17 22:27 Novolog Insulin Suppl Scale Inj SQ Not Given ACHS EZIO Protocol Sodium Chloride 2 ml 09/06/17 19:59 Ns Flush IV.FLUSH PRN PRN FLUSH AFTER USING IV ACCESS Sodium Chloride 2 ml 09/06/17 21:00 09/07/17 22:26 Ns Flush IV.FLUSH 2 ml BID EZIO Administration Allergies/Adverse Reactions: Allergies Allergy/AdvReac Type Severity Reaction Status Date / Time No Known Allergies Allergy Unverified 09/06/17 16:47 Physical Exam Vital signs: Vital Signs 09/07/17 08:00 09/07/17 08:38 09/07/17 12:13 Temperature 97.8 F 99.3 F Pulse Rate 87 78 87 Respiratory Rate 18 18 Blood Pressure 171/70 H 180/67 H Pulse Oximetry 97 94 L 09/07/17 14:50 07/05/18 16:27 09/07/17 20:00 Temperature 98.1 F 98.6 F Pulse Rate 82 84 Respiratory Rate 18 17 Blood Pressure 191/97 H 175/77 H Pulse Oximetry 94 L 97 95 09/07/17 21:00 09/08/17 00:00 09/08/17 06:08 Temperature 97.9 F 97.7 F Pulse Rate 97 H 97 H 88 Respiratory Rate 17 17 Blood Pressure 176/92 H 185/81 H Pulse Oximetry 94 L 94 L Intake & Output 09/07/17 09/08/17 09/08/17 18:59 06:59 18:59 Intake Total 120 / 120 Output Total 900 / 900 800 / 800 Balance -900 / -900 -680 / -680 Weight 60.9 kg 62 kg Intake: Oral 120 / 120 Output: Urine 900 / 900 800 / 800 Other: # Bowel Movements 0 Weight On Admission 60.9 kg Narrative: Her speech is more clear there is a left facial droop she is able to lift the left arm off the bed slightly but still not moving the fingers. Left lower extremity she moves quite well off the bed. Objective Laboratory Results - last 24 hr 09/06/17 09/07/17 09/07/17 19:25 08:06 08:17 Sodium 139 Potassium 3.2 L Chloride 100 Carbon Dioxide 27.7 Anion Gap 11 BUN 12 Creatinine 0.47 L Estimated GFR Greater than 89 POC Glucose 151 H Random Glucose 139 H Hemoglobin A1c Lactic Acid Calcium 8.5 D Triglycerides 163 H Cholesterol 168 LDL Cholesterol, Calc 95 HDL Cholesterol 40.0 Cholesterol/HDL Ratio 4.20 TSH Urine Color [place] Urine Clarity Hazy H Urine pH 6.0 Ur Specific [place] 1.019 Urine Protein 30 H Urine Glucose (UA) 50 Urine Ketones Trace H Urine Occult Blood Negative Urine Nitrate Positive H Urine Bilirubin Negative Urine Urobilinogen 4 or greater Ur Leukocyte Esterase Small H Urine RBC 2 Urine WBC Ur Squamous Epith Cells 3 Urine Bacteria Few H Urine Mucus Few H Micro UA Comment Culture indicated Urine Culture Comments Culture indicated 09/07/17 09/07/17 09/07/17 08:17 08:17 12:25 Sodium Potassium Chloride Carbon Dioxide Anion Gap BUN Creatinine Estimated GFR POC Glucose 176 H Random Glucose Hemoglobin A1c 8.7 H Lactic Acid Calcium Triglycerides Cholesterol LDL Cholesterol, Calc HDL Cholesterol Cholesterol/HDL Ratio TSH 11.900 H Urine Color Urine Clarity Urine pH Ur Specific [place] Urine Protein Urine Glucose (UA) Urine Ketones Urine Occult Blood Urine Nitrate Urine Bilirubin Urine Urobilinogen Ur Leukocyte Esterase Urine RBC Urine WBC Ur Squamous Epith Cells Urine Bacteria Urine Mucus Micro UA Comment Urine Culture Comments 09/07/17 09/07/17 09/07/17 16:26 16:46 20:58 Sodium Potassium Chloride Carbon Dioxide Anion Gap BUN Creatinine Estimated GFR POC Glucose 161 H 156 H Random Glucose Hemoglobin A1c Lactic Acid 1.1 Calcium Triglycerides Cholesterol LDL Cholesterol, Calc HDL Cholesterol Cholesterol/HDL Ratio TSH Urine Color Urine Clarity Urine pH Ur Specific [place] Urine Protein Urine Glucose (UA) Urine Ketones Urine Occult Blood Urine Nitrate Urine Bilirubin Urine Urobilinogen Ur Leukocyte Esterase Urine RBC Urine WBC Ur Squamous Epith Cells Urine Bacteria Urine Mucus Micro UA Comment Urine Culture Comments Microbiology 09/06/17 19:25 Urine Culture - Preliminary Clean Catch Urine gram negative rods Review/Management - Review/Management Plan: Her MRi looks probably a deep electrical project engineer type infarct. It is on the right side The CTA does not show anything in the right distal middle cerebral artery or its branches. The echocardiogram EF 45-50% with some apical hypokinesis and I will have cardiology see her. For now I would just treat with the aspirin she will need a [facility] outpatient. Her thyroid appears to be off and that should be treated. Her LDL was less than 100. We need to follow-up her Holter monitor but on aspirin 325 a day she is okay for discharge. There was some apical hypokinesis on the echo cardiology could weigh in whether they think she needs to be anticoagulated on the basis of that.
--- NOTE | 2017-09-08 08:15 | P.CONCA ---
History of Present Illness Primary Care Provider: UNKNOWN Family Provider: UNKNOWN Chief Complaint: Left-sided weakness History of Present Illness: 77-year-old female with a past medical history of chronic pain and opiate use who presented with left-sided weakness and facial droop. The patient was found to have CVA. Echocardiogram done a CVA workup showed slightly decreased EF 45 50% with possible septal hypokinesis, and for this we are consulted. The patient's EKG shows left bundle branch block, no prior EKG available for comparison. The patient denies any chest pain. She has been having some shortness of breath since admission, none prior, chest x-ray clear. She denies any prior history of heart disease, tobacco use, or family history of heart disease. Review of Systems All other systems reviewed negative except as stated in [facility] - History History Provided By: Patient - Medical History Medical History: Medical History (Last Updated 09/08/17 @ 08:12 by LIONEL Harris) Chronic pain History of hysterectomy Hypertension - Family History Family History: Family History (Last Updated 09/07/17 @ 04:42 by Duncan Pardo MD) Father Cancer Mother Diabetes - Tobacco History Second Hand Smoke Exposure: No Tobacco Use In Past 30 Days: No Smoking Status: Never smoker - Alcohol History How Often Do You Have a Drink Containing Alcohol: Never - Immunization History Tetanus Immunization: Unsure Hx Influenza Vaccine This Season: Yes Medications and Allergies Active Medications: Active Medications Albuterol (Duoneb Neb (Prn)) 1 ampul NEB Q4HR NEB PRN PRN Reason: SHORTNESS OF BREATH/WHEEZING Aspirin (Aspirin) 325 mg PO DAILY [facility] Last Admin: 09/07/17 08:49 Dose: 325 mg Dextrose (D50w Vial) 50 ml IV.PUSH UNSCH PRN PRN Reason: PER HYPOGLYCEMIA PROTOCOL Enalaprilat (Vasotec Inj) 1.25 mg IV.PUSH Q4H PRN PRN Reason: For SBP > 220 or DBP > 120 Glucagon (Glucagon Inj) 1 mg OTHER PRN PRN PRN Reason: for Hypoglycemia Protocol Heparin Sodium (Porcine) (Heparin Inj) 5,000 units SQ Q12H [facility] Last Admin: 09/07/17 22:25 Dose: 5,000 units Ceftriaxone Sodium 1,000 mg/ (Sodium Chloride) 100 mls @ 200 mls/hr IV.SIG Q24H [facility] Last Admin: 09/08/17 06:10 Dose: 200 mls/hr Sodium Chloride (Ns Inj) 1,000 mls @ 70 mls/hr IV.SIG .[id number] [facility] Last Admin: 09/08/17 06:09 Dose: Not Given Insulin Aspart (Novolog Insulin Suppl Scale Inj) 0 unit SQ ACHS [facility]; Protocol Last Admin: 09/07/17 22:27 Dose: Not Given Sodium Chloride (Ns Flush) 2 ml IV.FLUSH PRN PRN PRN Reason: FLUSH AFTER USING IV ACCESS Sodium Chloride (Ns Flush) 2 ml IV.FLUSH BID [facility] Last Admin: 09/07/17 22:26 Dose: 2 ml Allergies Allergy/AdvReac Type Severity Reaction Status Date / Time No Known Allergies Allergy Unverified 09/06/17 16:47 Home Medications Medication Instructions Recorded Confirmed Type Unable to Obtain Home Meds 09/06/17 09/06/17 History Exam Vital signs: Vital Signs 09/07/17 08:38 09/07/17 12:13 09/07/17 14:50 Temperature 97.8 F 99.3 F Pulse Rate 78 87 Respiratory Rate 18 18 Blood Pressure 171/70 H 180/67 H Pulse Oximetry 97 94 L 94 L 09/07/17 16:27 09/07/17 20:00 09/07/17 21:00 Temperature 98.1 F 98.6 F Pulse Rate 82 84 97 H Respiratory Rate 18 17 Blood Pressure 191/97 H 175/77 H Pulse Oximetry 97 95 09/08/17 00:00 09/08/17 06:08 Temperature 97.9 F 97.7 F Pulse Rate 97 H 88 Respiratory Rate 17 17 Blood Pressure 176/92 H 185/81 H Pulse Oximetry 94 L 94 L Intake & Output 09/07/17 09/08/17 09/08/17 18:59 06:59 18:59 Intake Total 120 / 120 Output Total 900 / 900 800 / 800 Balance -900 / -900 -680 / -680 Weight 134 lb 4.184 oz 136 lb 10.986 oz Intake: Oral 120 / 120 Output: Urine 900 / 900 800 / 800 Other: # Bowel Movements 0 Weight On Admission 134 lb 4.184 oz Narrative: GENERAL: Well-developed well-nourished. In no acute distress. NECK: No carotid bruits. No JVD. CARDIOVASCULAR: Regular rate and rhythm. /6 systolic ejection murmur appreciated. RESPIRATORY: No accessory muscle use. Clear to auscultation. Breath sounds equal bilaterally. MUSCULOSKELETAL: No clubbing or cyanosis. No edema. NEUROLOGICAL: Awake and alert. Slurred speech. Left-sided weakness and facial droop. Results 09/06/17 16:20 09/07/17 08:17 Lipids 09/07/17 Range/Units 08:17 Triglycerides 163 H (42-150) mg/dL Cholesterol 168 (120-200) mg/dL HDL Cholesterol 40.0 (40.0-60.0) mg/dL Cholesterol/HDL Ratio 4.20 Ratio Comprehensive Metabolic Panel 09/07/17 Range/Units 08:17 Sodium 139 (136-145) meq/L Potassium 3.2 L (3.5-5.1) meq/L Chloride 100 (98-107) meq/L Carbon Dioxide 27.7 (21.0-32.0) meq/L BUN 12 (7-18) mg/dL Creatinine 0.47 L (0.50-1.00) mg/dL Calcium 8.5 D (8.5-10.1) mg/dL Intake and Output 09/07/17 09/08/17 09/08/17 22:59 06:59 14:59 Intake Total 120 / 120 Output Total 900 / 900 800 / 800 Balance -900 / -900 -680 / -680 Intake: Oral 120 / 120 Output: Urine 900 / 900 800 / 800 Other: # Bowel Movements 0 Weight 136 lb 10.986 oz Assessment and Plan - Plan 77-year-old female with a past medical history of chronic pain and opiate use who presented with left-sided weakness and facial droop. The patient was found to have CVA. Echocardiogram done a CVA workup showed slightly decreased EF 45 50% with possible septal hypokinesis, and for this we are consulted. The patient's EKG shows left bundle branch block, no prior EKG available for comparison. The patient denies any chest pain. She has been having some shortness of breath since admission, none prior, chest x-ray clear. She denies any prior history of heart disease, tobacco use, or family history of heart disease. Cardiomyopathy: We will rule out ischemic etiology with Lexiscan. CVA: No A. fib noted. Holter ordered by neuro. If Holter negative, could consider event monitor as outpatient. Discussed Condition With: Patient, Dr. Haley, Dr. Moise
--- NOTE | 2017-09-08 09:31 | P.PNIM ---
Subjective Interval history: Left-sided weakness about the same, denies any headache, no new focal weakness. Blood pressure still mildly elevated. Discussed about rehab. Denies any shortness of breath or chest pain. Physical Exam Vital signs: Vital Signs 09/07/17 12:13 09/07/17 14:50 09/07/17 16:27 Temperature 99.3 F 98.1 F Pulse Rate 87 82 Respiratory Rate 18 18 Blood Pressure 180/67 H 191/97 H Pulse Oximetry 94 L 94 L 97 09/07/17 20:00 09/07/17 21:00 09/08/17 00:00 Temperature 98.6 F 97.9 F Pulse Rate 84 97 H 97 H Respiratory Rate 17 17 Blood Pressure 175/77 H 176/92 H Pulse Oximetry 95 94 L 09/08/17 06:08 09/08/17 08:36 Temperature 97.7 F 97.6 F Pulse Rate 88 86 Respiratory Rate 17 18 Blood Pressure 185/81 H 202/118 H Pulse Oximetry 94 L 96 Intake & Output 09/07/17 09/08/17 09/08/17 18:59 06:59 18:59 Intake Total 120 / 120 Output Total 900 / 900 800 / 800 Balance -900 / -900 -680 / -680 Weight 60.9 kg 62 kg Intake: Oral 120 / 120 Output: Urine 900 / 900 800 / 800 Other: # Bowel Movements 0 Weight On Admission 60.9 kg Narrative: Not in distress PERRL, pink conjunctiva without injection, anicteric Normal rate and regular rhythm, no murmurs gallops or rubs appreciated. Clear to auscultation and symmetric bilaterally, normal respiratory effort. Normal bowel sounds, soft, non-tender, nondistended, no guarding. Extremities without clubbing, cyanosis, or edema. No rash of generalized distribution. Skin is warm and dry. AAO x3, mild left facial droop, 4/5 left upper and lower extremities. Positive for mild dysarthria Results - Labs CBC & Chem 7: 09/06/17 16:20 09/07/17 08:17 Laboratory Results - last 24 hr 09/06/17 09/07/17 09/07/17 19:25 08:17 08:17 Sodium 139 Potassium 3.2 L Chloride 100 Carbon Dioxide 27.7 Anion Gap 11 BUN 12 Creatinine 0.47 L Estimated GFR Greater than 89 POC Glucose Random Glucose 139 H Hemoglobin A1c 8.7 H Lactic Acid Calcium 8.5 D Triglycerides 163 H Cholesterol 168 LDL Cholesterol, Calc 95 HDL Cholesterol 40.0 Cholesterol/HDL Ratio 4.20 TSH Urine Color [place] Urine Clarity Hazy H Urine pH 6.0 Ur Specific [place] 1.019 Urine Protein 30 H Urine Glucose (UA) 50 Urine Ketones Trace H Urine Occult Blood Negative Urine Nitrate Positive H Urine Bilirubin Negative Urine Urobilinogen 4 or greater Ur Leukocyte Esterase Small H Urine RBC 2 Urine WBC Ur Squamous Epith Cells 3 Urine Bacteria Few H Urine Mucus Few H Micro UA Comment Culture indicated Urine Culture Comments Culture indicated 09/07/17 09/07/17 09/07/17 08:17 12:25 16:26 Sodium Potassium Chloride Carbon Dioxide Anion Gap BUN Creatinine Estimated GFR POC Glucose 176 H Random Glucose Hemoglobin A1c Lactic Acid 1.1 Calcium Triglycerides Cholesterol LDL Cholesterol, Calc HDL Cholesterol Cholesterol/HDL Ratio TSH 11.900 H Urine Color Urine Clarity Urine pH Ur Specific [place] Urine Protein Urine Glucose (UA) Urine Ketones Urine Occult Blood Urine Nitrate Urine Bilirubin Urine Urobilinogen Ur Leukocyte Esterase Urine RBC Urine WBC Ur Squamous Epith Cells Urine Bacteria Urine Mucus Micro UA Comment Urine Culture Comments 09/07/17 09/07/17 09/08/17 16:46 20:58 08:09 Sodium Potassium Chloride Carbon Dioxide Anion Gap BUN Creatinine Estimated GFR POC Glucose 161 H 156 H 106 Random Glucose Hemoglobin A1c Lactic Acid Calcium Triglycerides Cholesterol LDL Cholesterol, Calc HDL Cholesterol Cholesterol/HDL Ratio TSH Urine Color Urine Clarity Urine pH Ur Specific [place] Urine Protein Urine Glucose (UA) Urine Ketones Urine Occult Blood Urine Nitrate Urine Bilirubin Urine Urobilinogen Ur Leukocyte Esterase Urine RBC Urine WBC Ur Squamous Epith Cells Urine Bacteria Urine Mucus Micro UA Comment Urine Culture Comments Microbiology 09/06/17 19:25 Clean Catch Urine Urine Culture - Final Enterobacter cloacae - Imaging Impressions Carotid Doppler Study 09/07/17 00:00 CONCLUSION: 1. Right Internal Carotid Artery: Findings indicate <50% stenosis. 2. Left Internal Carotid Artery: Findings indicate 50-69% stenosis. Head MRI 09/07/17 00:00 CONCLUSION: 1. Focal acute nonhemorrhagic area of infarction involving the deep right mid parietal lobe adjacent the right lateral ventricle extending to the right basal ganglia region. 2. Mild bilateral chronic white matter changes. 3. Chronic sinus disease. Neck MRA 09/07/17 00:00 CONCLUSION: 1. Approximately 45% stenosis of the internal carotid artery origins bilaterally secondary to eccentric plaque. 2. Patent vertebral arteries bilaterally. Percent stenosis is calculated using the diameter of the stenotic region over the diameter of the normal distal internal carotid artery Head MRA 09/07/17 20:01 CONCLUSION: 1. There appears to be a focal stenosis involving the proximal segment of a branch of the right middle cerebral artery. 2. Otherwise, the rest of the MRA brain is within normal limits for patient's age. Head CTA 09/08/17 00:00 CONCLUSION: No acute intracranial artery abnormality. The questionable stenosis of a right middle cerebral artery branch vessel seen on the comparison MRA is not reproduced consistent with transient spasm or flow related artifact; would favor the latter. Mild vertebrobasilar atherosclerosis without narrowing. Assessment and Plan - Plan This is a 77-year-old female with history of diabetes, hypertension presenting with left-sided weakness and facial droop Acute ischemic stroke-neurology following, MRI showed nonhemorrhagic infarction of the deep right mild parietal lobe adjacent the right lateral ventricle extending to the right basal ganglia region with bilateral chronic white matter changes. There is 45% stenosis of the bilateral ICA, continue aspirin 325 mg per neurology. Echocardiogram showed ejection fraction of 45-50% with apical hypokinesis. - Cardiology was consulted, will do a Lexiscan, if negative, no further workup, discussed with cardiology PA. Follow up Holter monitor, if negative, possible event monitor as outpatient. LDL is less than 100. Start statins. -Continue permissive hypertension for now. Diabetes mellitus-chronic, hemoglobin A1c 8.7, insulin sliding scale. BG's are stable at this point. UTI-urine culture grew Enterobacter cloacae, patient on ceftriaxone, sensitive , switch to cephalexin. History of COPD-duo nebs as needed Chronic pain. On Zachary. Patient denies any recent changes. Continue home meds. Anion gap acidosis. Uncertain etiology. Repeat labs. Trace ketones on urine. Lactic acid within normal limits, recheck BMP History of hypertension-unknown meds, permissive hypertension for now, Vasotec as needed. Hypothyroidism-TSH 11.9, check free T3 and free T4 DVT prophylaxis: Heparin. Consult physical therapy, would likely need SNF
[2017-09-08] MEDS: Heparin - SQ 10,000 UNITS/ML Vial SQ SCH ×2 (09:35→23:22)
[2017-09-08] MEDS: Aspirin 325 MG Tablet PO SCH (09:35)
[2017-09-08] MEDS ORDERED: Regadenoson Inj 0.4 MG/5 ML Syringe IV.PUSH ONE (11:40)
--- NOTE | 2017-09-08 13:30 | NM ---
EXAM DATE: 09/08/2017 1:24 PM EDT AGE/SEX: 77 years / Female INDICATIONS:Abnormal EKG. . Left sided weakness and facial droop. Dyspnea. CLINICAL DATA: This is the patient's initial encounter. Patient reports that signs and symptoms have been present for 1 day and indicates a pain score of 0/10. MEDICAL/SURGICAL HISTORY: Hypertension. Stroke. Hysterectomy. COMPARISON: No prior exams available for comparison. DOSE: 8.2 mCi Tc 99m Myoview at rest 27.3 mCi [id number] at stress 0.4 mg Lexiscan STRESS SYMPTOMS: Dyspnea. EJECTION FRACTION: 41 % TECHNIQUE: The patient underwent pharmacologic stress with infusion of prescribed dose. Continuous ECG tracing was monitored during stress. Gated SPECT imaging was performed after stress and conventi onal SPECT imaging was performed at rest. The examination was performed on a SPECT/CT scanner, both attenuation and non-corrected datasets were reviewed. FINDINGS: Distribution: The maximum perfused segment at stress is in the lateral wall. Perfusion Study: There is some mild diminished perfusion along the septal wall. However, this remai ns fixed on the rest images. Otherwise, there is good uptake throughout the rest of the left ventricl e on the perfusion study. Gated Study: There appears to mild global hypokinesis of the left ventricle along with some akinesis of the septal wall.. The ejection fraction is calculated at 41%. RISK CATEGORY: Low (<1% Annual Motality Rate) CONCLUSION: 1. No evidence to suggest ischemic myocardial disease. Electronically signed by: Luis Caldwell MD 09/08/2017 1:29 PM EDT
[2017-09-08 14:34] LABS: Free T4 (Free Thyroxine) 1.02 ng/dL (0.76-1.46); Triiodothyronine (T3) Free 1.83 pg/mL (2.18-3.98)
[2017-09-08] MEDS ORDERED: hydrALAZINE HCl Inj 20 MG/ML Vial IV.PUSH PRN (16:59)
[2017-09-08] MEDS ORDERED: Metoprolol Inj 5 MG/5 ML Vial IV.PUSH PRN (17:16)
[2017-09-08] MEDS: Lisinopril 20 MG Tablet PO SCH (23:22)
[2017-09-08] MEDS: Insulin NovoLOG Aspart Correctional Sugar Inj SQ SCH (23:29)
[2017-09-09] MEDS: Sod Chloride 0.9% Inj 1,000 ML IV.SIG SCH ×2 (06:50→18:55)
--- NOTE | 2017-09-09 08:18 | P.PNCA ---
<JacksonChanel Avilez - Last Filed: 09/09/17 08:11> Subjective Interval history: reports mild SOB, currently on O2 3L via nasal cannula. no chest pain or palpitations. no events on telemetry overnight. Physical Exam Vital signs: Vital Signs 09/08/17 08:36 09/08/17 16:37 09/08/17 17:54 Temperature 97.6 F 97.9 F Pulse Rate 86 101 H Respiratory Rate 18 18 Blood Pressure 202/118 H 218/92 H Pulse Oximetry 96 95 95 09/08/17 20:00 09/09/17 00:00 09/09/17 04:00 Temperature 97.9 F 98.2 F 98.1 F Pulse Rate 107 H 92 H 92 H Respiratory Rate 20 18 19 Blood Pressure 190/79 H 170/76 H 150/86 H Pulse Oximetry 96 96 95 Intake & Output 09/08/17 09/09/17 09/09/17 18:59 06:59 18:59 Weight 62 kg Assessment and Plan - Plan 77-year-old female with a past medical history of chronic pain and opiate use who presented with left-sided weakness and facial droop. The patient was found to have a CVA. Echocardiogram shows decreased EF 4550% with possible septal hypokinesis, and for this we are consulted. . Cardiomyopathy: EF 45-50%. nonischemic. lexiscan did not show ischemia. BP needs better control, tachycardic at times. consider adding carvedilol along with lisinopril. CVA: No A. fib noted on telemtery. carotid stenosis: moderate on R, mild on L cont asa 325mg Holter ordered by neuro. If Holter negative, could consider event monitor as outpatient. <Al Haley - Last Filed: 09/09/17 11:38> Physical Exam Vital signs: Vital Signs 09/08/17 16:37 09/08/17 17:54 09/08/17 20:00 Temperature 97.9 F 97.9 F Pulse Rate 101 H 107 H Respiratory Rate 18 20 Blood Pressure 218/92 H 190/79 H Pulse Oximetry 95 95 96 09/09/17 00:00 09/09/17 04:00 09/09/17 08:00 Temperature 98.2 F 98.1 F 98.8 F Pulse Rate 92 H 92 H 91 H Respiratory Rate 18 19 20 Blood Pressure 170/76 H 150/86 H 181/81 H Pulse Oximetry 96 95 91 L 09/09/17 10:45 Temperature Pulse Rate Respiratory Rate Blood Pressure Pulse Oximetry 93 L Intake & Output 09/08/17 09/09/17 09/09/17 18:59 06:59 18:59 Weight 62 kg Assessment and Plan - Attending Attestation continue current medical regimen further workup per neuro will sign off call [facility] questions
--- NOTE | 2017-09-09 08:55 | P.DS ---
Date of admission: 09/06/17 19:56 Primary care physician: UNKNOWN Brief History from admission: 77-year-old female with history of hypertension, COPD, diabetes mellitus who is brought in by family, having been found around 9:30 AM on 09/06 with left-sided weakness and facial droop. Patient says that this has been gradually worsening since 09/03. She denies any other symptoms. Denies any chest pain, shortness of breath, nausea, vomiting, fevers, chills, dysuria. DS: Diagnosis - Discharge Diagnosis (1) CVA (cerebral vascular accident) Status: Acute (2) UTI (urinary tract infection) Status: Acute DS: Summary Hospital Course: This is a 77-year-old female with history of diabetes, hypertension presenting with left-sided weakness and facial droop. Stroke alert was called upon admission. Neurology was consulted. MRI showed nonhemorrhagic infarction of the deep right mild parietal lobe adjacent the right lateral ventricle extending to the right basal ganglia region with bilateral chronic white matter changes. There is 45% stenosis of the bilateral ICA, continue aspirin 325 mg per neurology. Echocardiogram showed ejection fraction of 45-50% with apical hypokinesis. Cardiology was consulted, Lexiscan was done, negative for any ischemic disease. no further workup, discussed with cardiology PA. Follow up Holter monitor results as outpatient, if negative, possible event monitor as outpatient. Patient will be discharged on aspirin and statin. Hemoglobin A1c was 8.7, patient will need better management of diabetes as outpatient. SHe will be started on Metformin. Patient was also found to have a urinary tract infectiourine culture grew Enterobacter cloacae, patient on ceftriaxone initially, sensitive, switched to cephalexin. For her hypertension, the patient was started lisinopril and Coreg per recommendation from cardiology. Patient was also started on levothyroxine for elevated TSH and low free T3 during the hospital stay. Patient will be discharged to rehab for therapy. - Time Spent with Patient Total time spent providing and/or coordinating discharge services: Greater than 30 minutes Exam Vital signs: Vital Signs 09/08/17 16:37 09/08/17 17:54 09/08/17 20:00 Temperature 97.9 F 97.9 F Pulse Rate 101 H 107 H Respiratory Rate 18 20 Blood Pressure 218/92 H 190/79 H Pulse Oximetry 95 95 96 09/09/17 00:00 09/09/17 04:00 Temperature 98.2 F 98.1 F Pulse Rate 92 H 92 H Respiratory Rate 18 19 Blood Pressure 170/76 H 150/86 H Pulse Oximetry 96 95 Intake & Output 09/08/17 09/09/17 09/09/17 18:59 06:59 18:59 Weight 62 kg Narrative: Follow-up for stroke. No overnight events. Still with left-sided weakness. Denies any headache, no new neurologic changes. Denies any chest pain or shortness of breath. Physical exam: Not in distress PERRL, pink conjunctiva without injection, anicteric Normal rate and regular rhythm, no murmurs gallops or rubs appreciated. Clear to auscultation and symmetric bilaterally, normal respiratory effort. Normal bowel sounds, soft, non-tender, nondistended, no guarding. Extremities without clubbing, cyanosis, or edema. No rash of generalized distribution. Skin is warm and dry. AAO x3, mild left facial droop, 4/5 left upper and lower extremities. Positive for mild dysarthria Results Procedures completed during hospitalization: none Labs on day of discharge: Labs from last 24 hours 09/09/17 09/08/17 09/08/17 08:29 23:28 17:55 POC Glucose 121 H 95 103 Free T4 Free T3 09/08/17 09/08/17 13:17 13:04 POC Glucose 123 H Free T4 1.02 Free T3 1.83 L - Impressions ITS Impressions Chest X-Ray 09/06/17 16:17 CONCLUSION: No active disease. Head CT 09/06/17 16:22 CONCLUSION: 1. No acute findings. Remote lacunar infarct on the right involving basal ganglia and white matter. Carotid Doppler Study 09/07/17 00:00 CONCLUSION: 1. Right Internal Carotid Artery: Findings indicate <50% stenosis. 2. Left Internal Carotid Artery: Findings indicate 50-69% stenosis. Head MRI 09/07/17 00:00 CONCLUSION: 1. Focal acute nonhemorrhagic area of infarction involving the deep right mid parietal lobe adjacent the right lateral ventricle extending to the right basal ganglia region. 2. Mild bilateral chronic white matter changes. 3. Chronic sinus disease. Neck MRA 09/07/17 00:00 CONCLUSION: 1. Approximately 45% stenosis of the internal carotid artery origins bilaterally secondary to eccentric plaque. 2. Patent vertebral arteries bilaterally. Percent stenosis is calculated using the diameter of the stenotic region over the diameter of the normal distal internal carotid artery Head MRA 09/07/17 20:01 CONCLUSION: 1. There appears to be a focal stenosis involving the proximal segment of a branch of the right middle cerebral artery. 2. Otherwise, the rest of the MRA brain is within normal limits for patient's age. Head CTA 09/08/17 00:00 CONCLUSION: No acute intracranial artery abnormality. The questionable stenosis of a right middle cerebral artery branch vessel seen on the comparison MRA is not reproduced consistent with transient spasm or flow related artifact; would favor the latter. Mild vertebrobasilar atherosclerosis without narrowing. Myocardial Perfusion Scan Nuc Med 09/08/17 00:00 CONCLUSION: 1. No evidence to suggest ischemic myocardial disease. Discharge Plan - Discharge Disposition Patient Disposition: Discharge to SNF - Discharge Condition Condition: Stable - Discharge Order Discharge Orders: Discharge Order (Routine); Ordered 09/09/17 Ordered By: Quique Moise - Discharge Details Anticipated Discharge Date: 09/09/17 - Physicians Team Primary Care Provider: UNKNOWN, Attending Provider: Quique Moise Other Providers: Olaf Tamayo MD ; Slava Liu MD ; Al Haley MD
[2017-09-09] MEDS: Aspirin 325 MG Tablet PO SCH (09:42)
[2017-09-09] MEDS: Heparin - SQ 10,000 UNITS/ML Vial SQ SCH ×2 (09:43→20:37)
[2017-09-09] MEDS: Lisinopril 20 MG Tablet PO SCH ×3 (09:43→20:37)
[2017-09-09 09:54] LABS: Anion Gap 12 meq/L (5-15); Blood Urea Nitrogen 11 mg/dL (7-18); Calcium 8.4 mg/dL (8.5-10.1); Carbon Dioxide 24.3 meq/L (21.0-32.0); Chloride 100 meq/L (98-107); Glomerular Filtration Rate Greater Than 89 mL/min (>89); Glucose,Random 107 mg/dL (74-106); Potassium 3.1 meq/L (3.5-5.1); Sodium 136 meq/L (136-145)
[2017-09-09] MEDS: Insulin NovoLOG Aspart Correctional Sugar Inj SQ SCH ×4 (18:51→21:02)
[2017-09-10] MEDS: Sod Chloride 0.9% Inj 1,000 ML IV.SIG SCH (00:48)
[2017-09-10] MEDS: Heparin - SQ 10,000 UNITS/ML Vial SQ SCH ×2 (08:00→22:58)
[2017-09-10] MEDS: Insulin NovoLOG Aspart Correctional Sugar Inj SQ SCH ×4 (09:05→23:02)
[2017-09-10] MEDS: Aspirin 325 MG Tablet PO SCH (09:13)
[2017-09-10] MEDS: Lisinopril 20 MG Tablet PO SCH ×2 (09:14→22:58)
--- NOTE | 2017-09-10 09:55 | P.PNIM ---
Subjective Interval history: While awaiting placement, patient blood pressure still uncontrolled, complaining of low back pain because of the bed. Otherwise no new neurologic deficits, stable. Physical Exam Vital signs: Vital Signs 09/09/17 10:45 09/09/17 12:00 09/09/17 12:55 Temperature 98.1 F Pulse Rate 70 70 Respiratory Rate Blood Pressure 142/64 H Pulse Oximetry 93 L 97 09/09/17 20:00 09/10/17 00:00 09/10/17 03:10 Temperature 97.9 F 97.4 F L Pulse Rate 76 68 Respiratory Rate 20 20 18 Blood Pressure 178/67 H 151/70 H Pulse Oximetry 95 97 09/10/17 04:00 09/10/17 08:00 Temperature 96.4 F L 97.8 F Pulse Rate 73 65 Respiratory Rate 18 16 Blood Pressure 160/69 H 142/64 H Pulse Oximetry 94 L 97 Intake & Output 09/09/17 09/10/17 09/10/17 18:59 06:59 18:59 Intake Total 1000 / 1000 340 / 340 Output Total 1900 / 1900 450 / 450 Balance -900 / -900 -110 / -110 Weight 65.9 kg Intake: IV 1000 / 1000 100 / 100 NS Inj 1,000 ML @ 70 mls/hr IV. 1000 / 1000 SIG .[id number] [facility] Rx#:[id number] Oral 240 / 240 Output: Urine 1900 / 1900 450 / 450 Other: # Urine Diapers 1 # Bowel Movements 0 Results - Labs CBC & Chem 7: 09/06/17 16:20 09/09/17 08:16 Laboratory Results - last 24 hr 09/09/17 09/09/17 09/09/17 08:16 13:56 18:50 Sodium 136 Potassium 3.1 L Chloride 100 Carbon Dioxide 24.3 Anion Gap 12 BUN 11 Creatinine 0.35 L Estimated GFR Greater than 89 POC Glucose 212 H 172 H Random Glucose 107 H Calcium 8.4 L 09/09/17 09/10/17 20:47 09:04 Sodium Potassium Chloride Carbon Dioxide Anion Gap BUN Creatinine Estimated GFR POC Glucose 241 H 152 H Random Glucose Calcium - Procedures none Assessment and Plan - Assessment (1) CVA (cerebral vascular accident) Code(s): I63.9 - Cerebral infarction, unspecified Status: Acute (2) UTI (urinary tract infection) Code(s): N39.0 - Urinary tract infection, site not specified Status: Acute - Plan This is a 77-year-old female with history of diabetes, hypertension presenting with left-sided weakness and facial droop Acute ischemic stroke-neurology following, MRI showed nonhemorrhagic infarction of the deep right mild parietal lobe adjacent the right lateral ventricle extending to the right basal ganglia region with bilateral chronic white matter changes. There is 45% stenosis of the bilateral ICA, continue aspirin 325 mg per neurology. Echocardiogram showed ejection fraction of 45-50% with apical hypokinesis. - Cardiology was consulted, Lexiscan negative, cleared by cardiology. Follow up Holter monitor as outpatient. LDL is less than 100. Continue statin. Diabetes mellitus-chronic, hemoglobin A1c 8.7, insulin sliding scale. BG's are stable at this point. UTI-urine culture grew Enterobacter cloacae, patient on ceftriaxone, sensitive , switch to cephalexin and finish 1 week of treatment. History of COPD-duo nebs as needed Chronic pain. On [place]. Patient denies any recent changes. Continue home meds. Anion gap acidosis. Uncertain etiology. Repeat labs. Trace ketones on urine. Lactic acid within normal limits History of hypertension-continue lisinopril and Coreg, start Norvasc, blood pressure still uncontrolled. Hypothyroidism-start levothyroxine. DVT prophylaxis: Heparin. Consult physical therapy, discharge to [facility] and placement available. (1) CVA (cerebral vascular accident) Qualifiers: CVA mechanism: unspecified Qualified Code(s): I63.9 - Cerebral infarction, unspecified (2) UTI (urinary tract infection) Qualifiers: Urinary tract infection type: site unspecified Hematuria presence: without hematuria Qualified Code(s): N39.0 - Urinary tract infection, site not specified
[2017-09-10] MEDS: amLODIPine 5 MG Tablet PO SCH (19:56)
--- NOTE | 2017-09-10 22:20 | HM ---
Date Performed: 09/07/2017 Time Performed: 15:58:00 HOOKUP DATE: 09/07/17 03:58:00 PM Ana ANALYSIS START TIME: 09/07/2017 4:03:00 PM ANALYSIS END TIME: 09/08/2017 4:07:00 PM PATIENT AGE: 77 PATIENT HEIGHT PATIENT WEIGHT DRUG LIST PATIENT DIAGNOSIS TEST NARRATIVE: The patient's average heart rate was 92 BPM. Heart rates greater than 120 B PM were noted < 1% of the time. No episodes of bradycardia were noted. No pauses exceeding 2.0 s econds were noted. 2504 ventricular ectopics, which represented 2% of the total beat count, were noted. The highest ventricular ectopic frequency occurred from 06:00 PM to 07:00 PM Ana. During thi s time 223 VE(s) occurred. Ventricular ectopics were observed as 2471 isolated beat(s), as 15 couple t(s) and as 1 run(s). Some of the ventricular beats occurred in bigeminal cycles. 277 supraventr icular ectopics, which represented < 1% of the total beat count, were noted. The highest supraventri cular ectopic frequency occurred from 02:00 AM to 03:00 AM Fri. During this time 25 SVE(s) occurred. Multiple episodes of ST depression (defined as -1.0 mm or more) were noted in channel 1. The m aximum depression of -3.4 mm occurred at 04:11:03 AM Fri. Multiple episodes of ST depression (define d as -1.0 mm or more) were noted in channel 2. The maximum depression of -3.8 mm occurred at 12:27: 56 PM Fri. Multiple episodes of ST depression (defined as -1.0 mm or more) were noted in channel 3. The maximum depression of -2.8 mm occurred at 12:27:57 PM Fri. TEST INTERPRETATION: Overall unremarkable Holter monitor. The underlying rhythm appears to be S inus rhythm . No definite significant sustained arrhythmias are seen. Signed by : Vishnu Arita
[2017-09-10] MEDS: Acetaminophen 325 MG Tablet PO PRN (23:13)
--- NOTE | 2017-09-11 08:04 | P.PNNEU ---
Subjective Subjective Comments: No acute events reported No headache No chest pain No dyspnea Active Medications: Active Medications Generic Name Dose Route Start Last Admin Trade Name Freq PRN Reason Stop Dose Admin Acetaminophen 650 mg 09/10/17 09:53 09/10/17 23:13 Tylenol PO 650 mg Q4H PRN Administration fever and pain 1-10 Albuterol 1 ampul 09/07/17 04:38 Duoneb Neb (Prn) NEB Q4HR NEB PRN SHORTNESS OF BREATH/WHEEZING Amlodipine Besylate 5 mg 09/10/17 10:30 09/10/17 19:56 Norvasc PO 5 mg DAILY EZIO Administration Aspirin 325 mg 09/07/17 09:00 09/10/17 09:13 Aspirin PO 325 mg DAILY EZIO Administration Carvedilol 3.125 mg 09/09/17 09:00 09/10/17 22:58 Coreg PO 3.125 mg BID EZIO Administration Cephalexin Monohydrate 500 mg 09/08/17 14:00 09/11/17 06:15 Keflex PO 500 mg Q8HR EZIO Administration Dextrose 50 ml 09/06/17 20:05 D50w Vial IV.PUSH UNSCH PRN PER HYPOGLYCEMIA PROTOCOL Enalaprilat 1.25 mg 09/06/17 19:59 Vasotec Inj IV.PUSH Q4H PRN For SBP > 220 or DBP > 120 Glucagon 1 mg 09/06/17 20:05 Glucagon Inj OTHER PRN PRN for Hypoglycemia Protocol Heparin Sodium (Porcine) 5,000 units 09/06/17 20:00 09/10/17 22:58 Heparin Inj SQ 5,000 units Q12H EZIO Administration Insulin Aspart 0 unit 09/06/17 21:00 09/10/17 23:02 Novolog Insulin Suppl Scale Inj SQ 1 unit ACHS EZIO Administration Protocol Lisinopril 20 mg 09/08/17 16:59 09/10/17 22:58 Prinivil PO 20 mg BID EZIO Administration Metoprolol Tartrate 5 mg 09/08/17 17:16 Lopressor Inj IV.PUSH Q6H PRN SYSTOLIC BP GREATER THAN 210 Pravastatin Sodium 40 mg 09/09/17 09:00 09/10/17 09:13 Pravachol PO 40 mg DAILY EZIO Administration Sodium Chloride 2 ml 09/06/17 19:59 Ns Flush IV.FLUSH PRN PRN FLUSH AFTER USING IV ACCESS Sodium Chloride 2 ml 09/06/17 21:00 09/10/17 23:01 Ns Flush IV.FLUSH 2 ml BID EZIO Administration Allergies/Adverse Reactions: Allergies Allergy/AdvReac Type Severity Reaction Status Date / Time No Known Allergies Allergy Unverified 09/06/17 16:47 Physical Exam Vital signs: Vital Signs 09/10/17 12:00 09/10/17 16:00 09/10/17 20:00 Temperature 97.8 F 98.0 F Pulse Rate 78 81 87 Respiratory Rate 18 18 Blood Pressure 134/61 148/67 H Pulse Oximetry 93 L 95 09/11/17 00:00 09/11/17 01:27 09/11/17 03:17 Temperature 97.5 F L Pulse Rate 86 Respiratory Rate 18 16 18 Blood Pressure 163/69 H Pulse Oximetry 94 L 09/11/17 04:00 09/11/17 04:09 Temperature 97.3 F L Pulse Rate 75 75 Respiratory Rate 18 Blood Pressure 134/63 Pulse Oximetry Intake & Output 09/10/17 09/11/17 09/11/17 18:59 06:59 18:59 Output Total 250 / 250 Balance -250 / -250 Output: Urine 250 / 250 Other: # Voids 1 # Bowel Movements 0 Narrative: awake alert left droop left tricep 3+ lle 4- awake alert vff Objective Laboratory Results - last 24 hr 09/10/17 09/10/17 09/10/17 09:04 13:33 18:33 POC Glucose 152 H 195 H 158 H 09/10/17 23:01 POC Glucose 188 H Review/Management - Review/Management Plan: Her MRi looks probably a deep counter stitcher type infarct. It is on the right side The CTA does not show anything in the right distal middle cerebral artery or its branches. The echocardiogram EF 45-50% with some apical hypokinesis and I will have cardiology see her. For now I would just treat with the aspirin she will need a [facility] outpatient. Her thyroid appears to be off and that should be treated. Her LDL was less than 100. We need to follow-up her Holter monitor but on aspirin 325 a day she is okay for discharge. There was some apical hypokinesis on the echo cardiology could weigh in whether they think she needs to be anticoagulated on the basis of that. 09/11/[address] farnsworth o/p ready for rehab
[2017-09-11] MEDS: amLODIPine 5 MG Tablet PO SCH (08:46)
[2017-09-11] MEDS: Lisinopril 20 MG Tablet PO SCH ×2 (08:46→20:57)
[2017-09-11] MEDS: Aspirin 325 MG Tablet PO SCH (08:46)
[2017-09-11] MEDS: Heparin - SQ 10,000 UNITS/ML Vial SQ SCH ×2 (08:47→20:58)
[2017-09-11] MEDS: Insulin NovoLOG Aspart Correctional Sugar Inj SQ SCH ×4 (09:30→23:31)
--- NOTE | 2017-09-11 14:38 | P.PNIM ---
Subjective Interval history: Discharge was pending. Patient had an 18 beat run of V-tach followed by a 13 beat run of V-tach ( by about 1.5 seconds). Physical Exam Vital signs: Vital Signs 09/10/17 16:00 09/10/17 20:00 09/11/17 00:00 Temperature 98.0 F 97.5 F L Pulse Rate 81 87 86 Respiratory Rate 18 18 Blood Pressure 148/67 H 163/69 H Pulse Oximetry 95 94 L 09/11/17 01:27 09/11/17 03:17 09/11/17 04:00 Temperature Pulse Rate 75 Respiratory Rate 16 18 Blood Pressure Pulse Oximetry 09/11/17 04:09 Temperature 97.3 F L Pulse Rate 75 Respiratory Rate 18 Blood Pressure 134/63 Pulse Oximetry Intake & Output 09/10/17 09/11/17 09/11/17 18:59 06:59 18:59 Output Total 250 / 250 Balance -250 / -250 Output: Urine 250 / 250 Other: # Voids 1 # Bowel Movements 0 Narrative: GENERAL: NAD, A&Ox3 HEAD: Normocephalic. NECK: Supple, trachea midline. No lymphadenopathy. EYES: No scleral icterus. No injection or drainage. CARDIOVASCULAR: Regular rate and rhythm without murmurs, gallops, or rubs. RESPIRATORY: Breath sounds equal bilaterally. No accessory muscle use. GASTROINTESTINAL: Abdomen soft, non-tender, nondistended. MUSCULOSKELETAL: No cyanosis, or edema. SKIN: Warm and dry. NEURO: No focal neurological deficits. Results - Labs CBC & Chem 7: 09/06/17 16:20 09/09/17 08:16 Laboratory Results - last 24 hr 09/10/17 09/10/17 09/11/17 18:33 23:01 09:30 POC Glucose 158 H 188 H 238 H 09/11/17 09/11/17 09:31 13:50 POC Glucose 193 H 225 H - Procedures none Assessment and Plan - Assessment (1) CVA (cerebral vascular accident) Code(s): I63.9 - Cerebral infarction, unspecified Status: Acute (2) UTI (urinary tract infection) Code(s): N39.0 - Urinary tract infection, site not specified Status: Acute - Plan 77-year-old female presenting with left-sided weakness and facial droop V-tach Discharge held Cardiology consulted Follow on telemetry Acute ischemic stroke Continue physical therapy Diabetes mellitus type 2 Follow blood sugars Insulin sliding scale Diabetic diet UTI culture grew Enterobacter cloacae Continue ceftriaxone History of COPD duo nebs as needed Chronic pain Axis Anion gap acidosis Follow BMP Hypertension Continue baseline treatment Follow blood pressures Adjust treatments as needed continue lisinopril and Coreg, start Norvasc, blood pressure still uncontrolled. Hypothyroidism start levothyroxine. DVT prophylaxis Heparin. (1) CVA (cerebral vascular accident) Qualifiers: CVA mechanism: unspecified Qualified Code(s): I63.9 - Cerebral infarction, unspecified (2) UTI (urinary tract infection) Qualifiers: Urinary tract infection type: site unspecified Hematuria presence: without hematuria Qualified Code(s): N39.0 - Urinary tract infection, site not specified
--- NOTE | 2017-09-12 07:41 | P.PNCA ---
<Chanel Jackson A - Last Filed: 09/12/17 07:37> Subjective Interval history: patient was to be discharged yesterday but developed 18 beats of NSVT on telemetry, followed shortly after by 13 beats. She was asymptomatic. Resting comfortably. Denies chest pain. Physical Exam Vital signs: Vital Signs 09/11/17 08:00 09/11/17 16:00 09/11/17 19:45 Temperature 98.5 F Pulse Rate 77 77 Respiratory Rate 16 Blood Pressure 143/63 H Pulse Oximetry 98 96 97 09/11/17 20:00 09/11/17 20:15 09/12/17 00:00 Temperature 100.2 F H 97.4 F L Pulse Rate 78 78 Respiratory Rate 20 18 Blood Pressure 157/70 H 156/62 H Pulse Oximetry 97 98 97 09/12/17 04:00 Temperature 97.8 F Pulse Rate 79 Respiratory Rate 18 Blood Pressure 139/63 Pulse Oximetry 97 Intake & Output 09/11/17 09/12/17 09/12/17 18:59 06:59 18:59 Intake Total 240 / 240 240 / 240 Output Total 250 / 250 500 / 500 Balance -10 / -10 -260 / -260 Weight 65.8 kg Intake: Oral 240 / 240 240 / 240 Output: Urine 250 / 250 500 / 500 Other: # Voids 1 # Urine Diapers 1 # Bowel Movements 0 Narrative: GENERAL: NAD, A&Ox3 HEAD: Normocephalic. NECK: Supple, trachea midline. No lymphadenopathy. EYES: No scleral icterus. No injection or drainage. CARDIOVASCULAR: Regular rate and rhythm without murmurs, gallops, or rubs. RESPIRATORY: Breath sounds equal bilaterally. No accessory muscle use. GASTROINTESTINAL: Abdomen soft, non-tender, nondistended. MUSCULOSKELETAL: No cyanosis, or edema. SKIN: Warm and dry. NEURO: No focal neurological deficits. Assessment and Plan - Plan 77-year-old female with a past medical history of chronic pain and opiate use who presented with left-sided weakness and facial droop. The patient was found to have a CVA. Echocardiogram shows decreased EF 4550% with possible septal hypokinesis, and for this we are consulted. . Cardiomyopathy: EF 45-50%. nonischemic. lexiscan did not show ischemia. cont bb and ACEi CVA: No A. fib noted on telemetry or 24 hour holter. consider outpatient event monitor carotid stenosis: moderate on R, mild on L cont asa 325mg NSVT- 18 and 14 beat run yesterday on tele. no events overnight recent lexiscan did not show ischemia. EF 45-50% will order updated labs to evaluate electrolytes consider increase dose of carvedilol <TeraAl - Last Filed: 09/12/17 11:40> Physical Exam Vital signs: Vital Signs 09/11/17 16:00 09/11/17 19:45 09/11/17 20:00 Temperature 98.5 F Pulse Rate 77 Respiratory Rate 16 Blood Pressure 143/63 H Pulse Oximetry 96 97 97 09/11/17 20:15 09/12/17 00:00 09/12/17 04:00 Temperature 100.2 F H 97.4 F L 97.8 F Pulse Rate 78 78 80 Respiratory Rate 20 18 18 Blood Pressure 157/70 H 156/62 H 139/63 Pulse Oximetry 98 97 97 09/12/17 08:00 09/12/17 09:43 Temperature 97.9 F Pulse Rate 80 Respiratory Rate 18 Blood Pressure 157/70 H Pulse Oximetry 98 96 Intake & Output 09/11/17 09/12/17 09/12/17 18:59 06:59 18:59 Intake Total 240 / 240 240 / 240 Output Total 250 / 250 500 / 500 Balance -10 -260 / -260 Weight 65.8 kg Intake: Oral 240 / 240 240 / 240 Output: Urine 250 / 250 500 / 500 Other: # Voids 1 # Urine Diapers 1 # Bowel Movements 0 Assessment and Plan - Attending Attestation NSVT noted on telemetry echo EF 40-45% lexiscan no infarct or ischemia EF 41% no symptoms discussed with EP dr. Buckley he recommended titration of BB therapy. will increase Coreg and decrease ACEi for BP electrolytes ok if no further arrythmias in next 24 hrs, then ok for DC from cardio standpoint
[2017-09-12] MEDS: Lisinopril 20 MG Tablet PO SCH ×2 (09:57→21:56)
[2017-09-12] MEDS: Acetaminophen 325 MG Tablet PO PRN (09:57)
[2017-09-12] MEDS: Insulin NovoLOG Aspart Correctional Sugar Inj SQ SCH ×3 (09:59→17:59)
[2017-09-12] MEDS: amLODIPine 5 MG Tablet PO SCH (09:59)
[2017-09-12] MEDS: Aspirin 325 MG Tablet PO SCH (09:59)
[2017-09-12] MEDS: Heparin - SQ 10,000 UNITS/ML Vial SQ SCH ×2 (10:00→21:56)
--- NOTE | 2017-09-12 11:07 | P.PNNEU ---
Subjective Subjective Comments: No acute events reported No headache No chest pain No dyspnea Active Medications: Active Medications Generic Name Dose Route Start Last Admin Trade Name Freq PRN Reason Stop Dose Admin Acetaminophen 650 mg 09/10/17 09:53 09/12/17 09:57 Tylenol PO 650 mg Q4H PRN Administration fever and pain 1-10 Albuterol 1 ampul 09/07/17 04:38 Duoneb Neb (Prn) NEB Q4HR NEB PRN SHORTNESS OF BREATH/WHEEZING Amlodipine Besylate 5 mg 09/10/17 10:30 09/12/17 09:59 Norvasc PO 5 mg DAILY EZIO Administration Aspirin 325 mg 09/07/17 09:00 09/12/17 09:59 Aspirin PO 325 mg DAILY EZIO Administration Carvedilol 3.125 mg 09/09/17 09:00 09/12/17 09:58 Coreg PO 3.125 mg BID EZIO Administration Cephalexin Monohydrate 500 mg 09/08/17 14:00 09/12/17 08:14 Keflex PO 500 mg Q8HR EZIO Administration Dextrose 50 ml 09/06/17 20:05 D50w Vial IV.PUSH UNSCH PRN PER HYPOGLYCEMIA PROTOCOL Enalaprilat 1.25 mg 09/06/17 19:59 Vasotec Inj IV.PUSH Q4H PRN For SBP > 220 or DBP > 120 Glucagon 1 mg 09/06/17 20:05 Glucagon Inj OTHER PRN PRN for Hypoglycemia Protocol Heparin Sodium (Porcine) 5,000 units 09/06/17 20:00 09/12/17 10:00 Heparin Inj SQ 5,000 units Q12H EZIO Administration Insulin Aspart 0 unit 09/06/17 21:00 09/12/17 09:59 Novolog Insulin Suppl Scale Inj SQ Not Given ACHS [facility] Protocol Lisinopril 20 mg 09/08/17 16:59 09/12/17 09:57 Prinivil PO 20 mg BID EZIO Administration Metoprolol Tartrate 5 mg 09/08/17 17:16 Lopressor Inj IV.PUSH Q6H PRN SYSTOLIC BP GREATER THAN 210 Pravastatin Sodium 40 mg 09/09/17 09:00 09/12/17 09:57 Pravachol PO 40 mg DAILY EZIO Administration Sodium Chloride 2 ml 09/06/17 19:59 Ns Flush IV.FLUSH PRN PRN FLUSH AFTER USING IV ACCESS Sodium Chloride 2 ml 07/04/18 21:00 09/12/17 10:03 Ns Flush IV.FLUSH 2 ml BID EZIO Administration Allergies/Adverse Reactions: Allergies Allergy/AdvReac Type Severity Reaction Status Date / Time No Known Allergies Allergy Unverified 09/06/17 16:47 Physical Exam Vital signs: Vital Signs 09/11/17 16:00 09/11/17 19:45 09/11/17 20:00 Temperature 98.5 F Pulse Rate 77 Respiratory Rate 16 Blood Pressure 143/63 H Pulse Oximetry 96 97 97 09/11/17 20:15 09/12/17 00:00 09/12/17 04:00 Temperature 100.2 F H 97.4 F L 97.8 F Pulse Rate 78 78 80 Respiratory Rate 20 18 18 Blood Pressure 157/70 H 156/62 H 139/63 Pulse Oximetry 98 97 97 09/12/17 08:00 09/12/17 09:43 Temperature 97.9 F Pulse Rate 80 Respiratory Rate 18 Blood Pressure 157/70 H Pulse Oximetry 98 96 Intake & Output 09/11/17 09/12/17 09/12/17 18:59 06:59 18:59 Intake Total 240 / 240 240 / 240 Output Total 250 / 250 500 / 500 Balance -10 -260 / -260 Weight 65.8 kg Intake: Oral 240 / 240 240 / 240 Output: Urine 250 / 250 500 / 500 Other: # Voids 1 # Urine Diapers 1 # Bowel Movements 0 Narrative: awake no change lhp stil no movement left hand Objective Laboratory Results - last 24 hr 09/11/17 09/11/17 09/11/17 13:50 18:24 20:25 POC Glucose 225 H 129 H 144 H 09/12/17 07:51 POC Glucose 143 H Review/Management - Review/Management Plan: Her MRi looks probably a deep electrical experimental mechanic type infarct. It is on the right side The CTA does not show anything in the right distal middle cerebral artery or its branches. The echocardiogram EF 45-50% with some apical hypokinesis and I will have cardiology see her. For now I would just treat with the aspirin she will need a [facility] outpatient. Her thyroid appears to be off and that should be treated. Her LDL was less than 100. We need to follow-up her Holter monitor but on aspirin 325 a day she is okay for discharge. There was some apical hypokinesis on the echo cardiology could weigh in whether they think she needs to be anticoagulated on the basis of that. 09/11/17 john neg needs cardiohima farnsworth o/p ready for rehab 09/12/17 stable and ready for rehab as above o/p cardiohima dai fu office 6 weeks
[2017-09-12 11:23] LABS: Anion Gap 9 meq/L (5-15); Blood Urea Nitrogen 16 mg/dL (7-18); Calcium 8.8 mg/dL (8.5-10.1); Carbon Dioxide 32.9 meq/L (21.0-32.0); Chloride 95 meq/L (98-107); Glomerular Filtration Rate Greater Than 89 mL/min (>89); Glucose,Random 188 mg/dL (74-106); Magnesium 1.6 mg/dL (1.5-2.5); Potassium 3.5 meq/L (3.5-5.1); Sodium 137 meq/L (136-145)
--- NOTE | 2017-09-12 12:28 | P.PNIM ---
Subjective Interval history: No recurrence of ventricular tachycardia. Cardiology has evaluated this patient and spoken with electrophysiology glassworker. Interventions are not needed at this point. The patient's beta-toney has been adjusted and she will be monitored for 24 hours further. Physical Exam Vital signs: Vital Signs 09/11/17 16:00 09/11/17 19:45 09/11/17 20:00 Temperature 98.5 F Pulse Rate 77 Respiratory Rate 16 Blood Pressure 143/63 H Pulse Oximetry 96 97 97 09/11/17 20:15 09/12/17 00:00 09/12/17 04:00 Temperature 100.2 F H 97.4 F L 97.8 F Pulse Rate 78 78 80 Respiratory Rate 20 18 18 Blood Pressure 157/70 H 156/62 H 139/63 Pulse Oximetry 98 97 97 09/12/17 08:00 09/12/17 09:43 Temperature 97.9 F Pulse Rate 82 Respiratory Rate 18 Blood Pressure 157/70 H Pulse Oximetry 98 96 Intake & Output 09/11/17 09/12/17 09/12/17 18:59 06:59 18:59 Intake Total 240 / 240 240 / 240 Output Total 250 / 250 500 / 500 Balance -10 -260 / -260 Weight 65.8 kg Intake: Oral 240 / 240 240 / 240 Output: Urine 250 / 250 500 / 500 Other: # Voids 1 # Urine Diapers 1 # Bowel Movements 0 Narrative: GENERAL: NAD, A&Ox3 HEAD: Normocephalic. NECK: Supple, trachea midline. No lymphadenopathy. EYES: No scleral icterus. No injection or drainage. CARDIOVASCULAR: Regular rate and rhythm without murmurs, gallops, or rubs. RESPIRATORY: Breath sounds equal bilaterally. No accessory muscle use. GASTROINTESTINAL: Abdomen soft, non-tender, nondistended. MUSCULOSKELETAL: No cyanosis, or edema. SKIN: Warm and dry. NEURO: No focal neurological deficits. Results - Labs CBC & Chem 7: 09/06/17 16:20 09/12/17 10:04 Laboratory Results - last 24 hr 09/11/17 09/11/17 09/11/17 13:50 18:24 20:25 Sodium Potassium Chloride Carbon Dioxide Anion Gap BUN Creatinine Estimated GFR POC Glucose 225 H 129 H 144 H Random Glucose Calcium Magnesium 09/12/17 09/12/17 07:51 10:04 Sodium 137 Potassium 3.5 Chloride 95 L Carbon Dioxide 32.9 H Anion Gap 9 BUN 16 Creatinine 0.41 L Estimated GFR Greater than 89 POC Glucose 143 H Random Glucose 188 H Calcium 8.8 Magnesium 1.6 - Procedures none Assessment and Plan - Assessment (1) CVA (cerebral vascular accident) Code(s): I63.9 - Cerebral infarction, unspecified Status: Acute (2) UTI (urinary tract infection) Code(s): N39.0 - Urinary tract infection, site not specified Status: Acute - Plan 77-year-old female presenting with left-sided weakness and facial droop No recurrence of V. tach. Beta-toney has been adjusted by cardiology. Monitor for 24 hours more and reconsider discharge if patient is stable in that time. Monitor blood pressures with adjustments. V-tach Discharge held Cardiology consulted Follow on telemetry Acute ischemic stroke Continue physical therapy Diabetes mellitus type 2 Follow blood sugars Insulin sliding scale Diabetic diet UTI culture grew Enterobacter cloacae Continue ceftriaxone History of COPD duo nebs as needed Chronic pain [place] Anion gap acidosis Follow BMP Hypertension Continue baseline treatment Follow blood pressures Adjust treatments as needed continue lisinopril and Coreg, start Norvasc, blood pressure still uncontrolled. Hypothyroidism start levothyroxine. DVT prophylaxis Heparin. (1) CVA (cerebral vascular accident) Qualifiers: CVA mechanism: unspecified Qualified Code(s): I63.9 - Cerebral infarction, unspecified (2) UTI (urinary tract infection) Qualifiers: Urinary tract infection type: site unspecified Hematuria presence: without hematuria Qualified Code(s): N39.0 - Urinary tract infection, site not specified
--- NOTE | 2017-09-12 17:22 | P.DIET ---
Nutritional Evaluation Type of nutrition evaluation: initial Nutrition screening: Poor PO Intake Subjective Oral Diet Tolerance Assessment Indicates: Swallowing problems Subjective Comments: Pt says she did "okay" w/the pureed meal. Pt receptive to receiving a Glucerna Shake w/meals Objective - Diagnosis Stroke Alert/evac - Objective % IBW: 122 Energy Needs - Lower Range (kCal/kg): 25 Energy Needs - Upper Range (kCal/kg): 30 Lower Limit kCal/kg (kCals): 1,523 Upper Limit kCal/kg (kCals): 1,827 Lower Limit Protein Factor (Grams per Kg): 1.1 Upper Limit Protein Factor (Grams per Kg): 1.4 Lower Protein Needs (Protein): 67 Upper Protein Needs (Protein): 85 Dietitian Reviewed in Medical Record: Current diet, Curent medications, Intake & Output, Labs, Medical history Diet Order: 1800 ADA Pureed [place] Thickened Liquids Oral Diet Intake Amount: Poor <50% Speech Therapy Recommendations: Yes (Pureed NTL) Objective Comments: PMH: DM-2, COPD, HTN, hypothyroidism Accucheck 143, 206 Meds Include: Norvasc, Coreg -BM -UOP 750ml Assessment Assessment: Pt is at nutritional risk r/t Inadequate po intake. Noted diet downgraded from Mech soft to Pureed per ST, d/t "generalized weakness and difficulty w/ mastication of mechanical soft". Send Glucerna Shake w/meal(= 220 kcal and 10g Protein per serving). Labs reviewed. Dietitian following. Recommendations: 1. Send Glucerna Shake w/meals 2.Dietitian following Dietitian to Monitor: Lab values, Glucose level, Supplement acceptance, Intake & Output, Diet tolerance, Weight change, PO Intake
[2017-09-12] MEDS: Carvedilol 12.5 MG Tablet PO SCH (21:56)
[2017-09-13] MEDS: Acetaminophen 325 MG Tablet PO PRN ×2 (00:34→12:22)
[2017-09-13] MEDS: Insulin NovoLOG Aspart Correctional Sugar Inj SQ SCH ×3 (00:34→12:53)
[2017-09-13] MEDS: Carvedilol 12.5 MG Tablet PO SCH (08:40)
[2017-09-13] MEDS: amLODIPine 5 MG Tablet PO SCH (08:40)
[2017-09-13] MEDS: Lisinopril 20 MG Tablet PO SCH (08:41)
[2017-09-13] MEDS: Heparin - SQ 10,000 UNITS/ML Vial SQ SCH (08:41)
[2017-09-13] MEDS: Aspirin 325 MG Tablet PO SCH (08:41)
[2017-09-13] MEDS ORDERED: Lisinopril 20 MG Tablet PO SCH (09:00)
--- NOTE | 2017-09-13 11:10 | P.DS ---
Date of admission: 09/06/17 19:56 Primary care physician: UNKNOWN Brief History from admission: 77-year-old female with history of hypertension, COPD, diabetes mellitus who is brought in by family, having been found around 9:30 AM on 09/06 with left-sided weakness and facial droop. Patient says that this has been gradually worsening since 09/03. She denies any other symptoms. Denies any chest pain, shortness of breath, nausea, vomiting, fevers, chills, dysuria. DS: Diagnosis - Discharge Diagnosis (1) CVA (cerebral vascular accident) Status: Acute (2) UTI (urinary tract infection) Status: Acute DS: Medications - Discharge Medications Prescriptions: aspirin 325 mg PO DAILY #30 tab carvedilol [Coreg] 12.5 mg PO BID #60 tab carvedilol [Coreg] 3.125 mg PO BID #60 tab cephalexin 500 mg PO Q8HR 5 Days cap levothyroxine [Levoxyl] 100 mcg PO DAILY #30 tab lisinopril 20 mg PO BID #60 tab lisinopril 20 mg PO DAILY #30 tab metformin [Glucophage] 500 mg PO BID #60 tab pravastatin 40 mg PO DAILY #30 tab DS: Summary Hospital Course: Mrs. Boyer is a 77-year-old female. She was originally admitted secondary to CVA. Needed to long term facility at time of her discharge, however before discharging she had a sustained run of ventricular tachycardia. Cardiology was consulted and medications have been adjusted. This patient has not had any recurrence of ventricular tachycardia and at this point she is determined to be medically stable and clear for discharge to long term facility as previously planned. - Time Spent with Patient Total time spent providing and/or coordinating discharge services: Exam Vital signs: Vital Signs 09/12/17 12:00 09/12/17 16:00 09/12/17 20:00 Temperature 98.2 F 98.2 F 98 F Pulse Rate 71 79 94 H Respiratory Rate 18 18 18 Blood Pressure 134/63 112/54 L 142/65 H Pulse Oximetry 93 L 98 98 09/12/17 21:41 09/13/17 00:00 09/13/17 04:00 Temperature 98 F 98.2 F Pulse Rate 96 H 73 Respiratory Rate 18 18 Blood Pressure 109/53 L 104/52 L Pulse Oximetry 98 96 97 09/13/17 08:00 09/13/17 09:32 Temperature 98.4 F Pulse Rate 66 Respiratory Rate 18 Blood Pressure 134/60 Pulse Oximetry 94 L 96 Intake & Output 09/12/17 09/13/17 09/13/17 18:59 06:59 18:59 Other: # Voids 2 Results Procedures completed during hospitalization: none Labs on day of discharge: Labs from last 24 hours 09/13/17 09/12/17 09/12/17 07:29 21:58 16:51 Sodium Potassium Chloride Carbon Dioxide Anion Gap BUN Creatinine Estimated GFR POC Glucose 166 H 176 H 206 H Random Glucose Calcium Magnesium 09/12/17 09/12/17 09/12/17 12:42 12:41 10:04 Sodium 137 Potassium 3.5 Chloride 95 L Carbon Dioxide 32.9 H Anion Gap 9 BUN 16 Creatinine 0.41 L Estimated GFR Greater than 89 POC Glucose 249 H 253 H Random Glucose 188 H Calcium 8.8 Magnesium 1.6 - Impressions ITS Impressions Chest X-Ray 09/06/17 16:17 CONCLUSION: No active disease. Head CT 09/06/17 16:22 CONCLUSION: 1. No acute findings. Remote lacunar infarct on the right involving basal ganglia and white matter. Carotid Doppler Study 09/07/17 00:00 CONCLUSION: 1. Right Internal Carotid Artery: Findings indicate <50% stenosis. 2. Left Internal Carotid Artery: Findings indicate 50-69% stenosis. Head MRI 09/07/17 00:00 CONCLUSION: 1. Focal acute nonhemorrhagic area of infarction involving the deep right mid parietal lobe adjacent the right lateral ventricle extending to the right basal ganglia region. 2. Mild bilateral chronic white matter changes. 3. Chronic sinus disease. Neck MRA 09/07/17 00:00 CONCLUSION: 1. Approximately 45% stenosis of the internal carotid artery origins bilaterally secondary to eccentric plaque. 2. Patent vertebral arteries bilaterally. Percent stenosis is calculated using the diameter of the stenotic region over the diameter of the normal distal internal carotid artery Head MRA 09/07/17 20:01 CONCLUSION: 1. There appears to be a focal stenosis involving the proximal segment of a branch of the right middle cerebral artery. 2. Otherwise, the rest of the MRA brain is within normal limits for patient's age. Head CTA 09/08/17 00:00 CONCLUSION: No acute intracranial artery abnormality. The questionable stenosis of a right middle cerebral artery branch vessel seen on the comparison MRA is not reproduced consistent with transient spasm or flow related artifact; would favor the latter. Mild vertebrobasilar atherosclerosis without narrowing. Myocardial Perfusion Scan Nuc Med 09/08/17 00:00 CONCLUSION: 1. No evidence to suggest ischemic myocardial disease. Discharge Plan - Discharge Disposition Patient Disposition: 03 Discharge to SNF - Discharge Condition Condition: Stable - Discharge Order Discharge Orders: Discharge Order (Routine); Ordered 09/13/17 Ordered By: Thomas Mitchell - Discharge Details Anticipated Discharge Date: 09/09/17 - Physicians Team Primary Care Provider: UNKNOWN, Attending Provider: Thomas Mitchell Other Providers: Olaf Tamayo MD ; Slava Liu MD ; Al Haley MD ; Sadiq Noel DO
== END 2017-09-13 13:12 ==
LOC: NEPC 16:02 → NEDA 19:56 → N05 21:44
PROVIDERS: ADMIT Hospitalist; ATTEND Hospitalist